=== PATIENT | male | born 1975 | race Two or more races ===

== ENCOUNTER 2023-02-06 14:56 | Outpatient (AMB) | payer OTHER, MEDICAID, SELFPAY ==
[2023-02-06 15:06] VITALS: BP 124/80; PULSE 97; O2SAT 97; BMI 32.8
--- NOTE | 2023-02-06 15:06 | A.OFFPC_ITS ---
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 PMHx: Pre-diabetes, hypertension. Pt states had changed to a vegetarian diet. SurgHx: Vasectomy FHx: Mom: HTN. Uncle: Colon CA age 44. GM: Brain tumor. SocHx: Quit cigs 2008. 1 ppd x 7. EtOH rarely 1-2 drinks per year. No Drugs. PFSH Medical History (Updated 02/06/23 @ 16:04 by Taz Antoine) Hypertension Pre-diabetes Depression Anxiety Surgical History (Updated 02/06/23 @ 15:18 by Jacey Pacheco CMA) H/O vasectomy Family History (Updated 02/06/23 @ 15:19 by Jacey Pacheco CMA) Mother High blood pressure Paternal Grandfather Diabetes Social History (Updated 02/06/23 @ 15:17 by Jacey Pacheco CMA) Household Members: Family Both parents involved: No Caregiver staying overnight: No Housing: House Are you a primary care administrative tech to a significant other at home: No Do you presently have visiting nurse or other home services: No 75 years or older and lives alone: No Alcohol intake: current Comment: on occasion Patient Tobacco Use Status: Former Tobacco user e-Cigarette/Vaping Use: Never Used Use of substances other than those prescribed or required for medical reasons: No Have you been hit, kicked, punched, or otherwise hurt by someone within the past year? If so, by whom?: No Do you feel safe in your current relationship?: Yes Is there a partner from a previous relationship who is making you feel unsafe now?: No Are you made to feel afraid or neglected: No Special amanda needs: No Are you DNR?: No Advance Directives: No Advance Directives Information Provided: No Healthcare Proxy: No service: Yes Current occupational status: employed Cognitive needs: No Hearing needs: No Vision needs: No Questionnaire PHQ-9 Over the last 2 weeks, how often have you been bothered by any of the following problems? 1. Little interest or pleasure in doing things: more than half the days 2. Feeling down, depressed, or hopeless: several days 3. Trouble falling or staying asleep, or sleeping too much: several days 4. Feeling tired or having little energy: several days 5. Poor appetite or overeating: not at all 6. Feeling bad about yourself - or that you are a failure or have let yourself or your family down: several days 7. Trouble concentrating on things, such as reading the newspaper or watching television: not at all 8. Moving or speaking so slowly that other people could have noticed. Or the opposite - being so fidgety or restless that you have been moving around a lot more than usual: not at all 9. Thoughts that you would be better off or of hurting yourself in some way: not at all Total score: 6 Source: Developed by Drs. Gerry Saxena, Nika Leonard, Agusto Goodson and colleagues, with an educational robb from [employer]. Thrive Questionnaire Date Thrive assessed: 02/06/23 I am a: Patient What is your living situation today?: I have a steady place to live Within the past 12 months, did the food you bought not last and you didn't have the money to get more?: Never true Within the past 12 months, did you worry whether your food would run out before you got money to buy more?: Never true Do you have trouble paying for medicines?: No Do you have trouble getting transportation to medical appointments?: No Do you have trouble paying your heating and electricity bill?: No Do you have trouble taking care of your child, family member or friend?: No Do you have trouble with day-to-day activities such as bathing, preparing meals, shopping, managing finances, etc.?: No Are you currently unemployed and looking for a job?: No Are you interested in more education?: No AUDIT C Alcohol Use Questionnaire (AUDIT-C) 1. How often do you have a drink containing alcohol?: Monthly or less 2. How many drinks containing alcohol do you have on a typical day when you are drinking?: 1 or 2 3. How often do you have six or more drinks on one occasion?: Never Total Score: 1 TURNER-7 AMB Questionnaire TURNER-7 Date TURNER - 7 assessed: 02/06/23 Feeling nervous, anxious, or on edge: 2 = More than half the days Not being able to stop or control worryin = Several days Worrying too much about different things: 1 = Several days Trouble relaxin = More than half the days Being so restless that it is hard to sit still: 1 = Several days Becoming easily annoyed or irritable: 2 = More than half the days Feeling afraid as if something awful might happen: 1 = Several days Total TURNER-7 score (0-4 normal; 5-9 mild; 10-14 moderate; 15-21 severe): 10 Source: Developed by Drs. Gerry Saxena, Nika Leonard, Agusto Goodson and colleagues, with an educational robb from [employer]. Review of Systems Const Denies chills, Denies fatigue, Denies fever(s), Denies headache(s) and Denies weakness ENT Denies dizziness and Denies headache(s) Card Denies chest pain, Denies lightheadedness, Denies dyspnea and Denies other (Palpitations) Resp Denies cough, Denies dyspnea, Denies wheezing and Denies other ( shortness of breath) Musc Denies numbness and Denies tingling Neuro Denies dizziness, Denies headache(s), Denies numbness, Denies tingling, Denies paresthesias and Denies weakness Psych Denies anxiety and Denies depression Endo Denies fatigue Aller/Immun Denies wheezing Physical exam (Primary Care) Vital Signs: Last Vital Signs Pulse 97 02/06/23 15:06 BP 124/80 02/06/23 15:06 Pulse Ox 97 02/06/23 15:06 Oxygen Delivery Method Room Air 02/06/23 15:06 BMI result Body Mass Index 32.8 Tobacco/Smoking Status: Tobacco use Status Tobacco use date assessed 02/06/23 02/06/23 15:21 Patient Tobacco Use Status Former Tobacco user 02/06/23 15:21 e-Cigarette/Vaping Use Never Used 02/06/23 15:21 PHQ-9: PHQ-9 Score PHQ-9: Total score 6 02/06/23 15:55 Thrive Assessment: Date of Thrive Assessment Date Thrive assessed 02/06/23 02/06/23 15:21 Const General: no acute distress and well developed Nutritional Appearance: well nourished Orientation/consciousness: patient oriented x3 HENMT Head: Yes normocephalic and Yes atraumatic Eyes General: appearance normal, both eyes and all related structures Pupils: Equal, round and reactive pupils present EOM: EOMs intact bilaterally Resp Effort & Inspection: normal respiratory effort Auscultation: clear to auscultation bilaterally Cardio Rate: regular rate Rhythm: regular rhythm Heart sounds: S1 normal heart sound present, S2 normal heart sound present, no gallops, no murmurs and no rubs Neuro General: patient oriented x3 and gait normal Cranial nerves: Yes Equal, round and reactive pupils present Psych Affect: normal affect Assessment and Plan Assessment & Plan (1) Gout: Code(s): M10.9 - Gout, unspecified Plan: Recent?gout. Check?uric?acid Continue?avoiding?trigger?foods (2) Laboratory exam ordered as part of routine general medical examination: Code(s): Z00.00 - Encounter for general adult medical examination without abnormal findings Plan: Check?lab Orders: Orders Comprehensive [place]. Panel Fast Today Z00.00 - Encounter for general adult medical examination without abnormal findings Lipid Panel Today Z00.00 - Encounter for general adult medical examination without abnormal findings Prostate Specific Antigen Scr Today Z12.5 - Encounter for screening for malignant neoplasm of prostate Microalbumin, Random (w Creat) Today I10 - Essential (primary) hypertension UA and rflx microscopic Today Z00.00 - Encounter for general adult medical examination without abnormal findings TSH reflex Free T4 Today Z00.00 - Encounter for general adult medical examination without abnormal findings Uric Acid Today M10.9 - Gout, unspecified Complete Blood Count Auto Diff Today Z00.00 - Encounter for general adult medical examination without abnormal findings Coding Level of Care Code New Pt Level 3 (37940) Diagnoses Gout M10.9 Laboratory exam ordered as part of routine general medical examination Z00.00
== END 2023-02-06 16:13 | disposition home or self-care (01) ==
PROVIDERS: PCP Family Medicine; Visit Provider Family Medicine
DX: M10.9 Gout, unspecified (principal); Z00.00 Encounter for general adult medical examination without abnormal findings
CPT/HCPCS: 99203

== ENCOUNTER 2023-04-16 06:02 | Outpatient (REF) | payer OTHER, MEDICAID, SELFPAY ==
[2023-04-16 06:23] LABS: MANUAL DIFF FLAG NO
[2023-04-16 07:47] LABS: Appearance Urine Clear; Color Urine Yellow; Glucose Urine UA Negative (Negative); Leukocyte Esterase Urine Negative (Negative); Nitrite Urine Negative (Negative); Urine Blood Negative (Negative); Urine Ketones Negative (Negative); Urine Protein Negative (Neg-Trace)
[2023-04-16 07:49] LABS: Basophils Absolute Auto 0.1 X10*3/uL (0.0-0.2); Basophils Percent Auto 0.8 % (0-2); Eosinophils Absolute Auto 0.1 X10*3/uL (0.0-0.4); Eosinophils Percent Auto 1.7 % (0-4); Hematocrit 50.8 % (42.0-52.0); Hemoglobin 16.9 g/dl (14.0-18.0); Imm Gran Abs Auto 0.03 X10*3/uL (0.00-0.03); Imm Gran Pct Auto 0.5 % (0.0-0.4); Lymphocytes Absolute Auto 1.9 X10*3/uL (1.2-4.9); Lymphocytes Percent Auto 29.6 % (20-40); Mean Corpuscular HGB Conc 33.3 g/dl (31.0-36.0); Mean Corpuscular Hemoglobin 28.4 pg (27.0-33.0); Mean Corpuscular Volume 85.4 fL (80.0-98.0); Mean Platelet Volume 10.2 fL (9.4-12.4); Monocytes Absolute Auto 0.5 X10*3/uL (0.1-1.2); Monocytes Percent Auto 7.6 % (2-11); Neutrophils Absolute Auto 3.9 x10*3/uL (2.0-8.3); Neutrophils Percent Auto 59.8 % (45-73); Platelet Count 214 X10*3/uL (160-400); Red Blood Count 5.95 X10*6/uL (4.60-5.80); Red Cell Distribution Width 14.1 % (11.0-16.0); White Blood Count 6.5 X10*3/uL (4.8-10.8)
[2023-04-16 08:25] LABS: Creatinine Urine 148.01 mg/dL; Microalbum/Creatinine Ratio Ur 3.3 ug/mg cr (<30)
[2023-04-16 08:32] LABS: Alanine Aminotransferase 116 U/L (0-40); Albumin Level 4.2 g/dL (3.5-5.0); Alkaline Phosphatase 86 U/L (39-117); Anion Gap 10 (12-20); Aspartate Amino Transferase 53 U/L (5-37); Bilirubin Total 0.6 mg/dL (0.0-1.0); Blood Urea Nitrogen 12 mg/dL (9-16); Carbon Dioxide 26 mmol/L (22-29); Chloride 105 mmol/L (96-108); Cholesterol 237 mg/dL (<200); Estimated Glomerular Filt Rate > 60; Glucose Fasting 92 mg/dL (60-99); HDL Cholesterol 55 mg/dL (>40); LDL Cholesterol Calculated 140 mg/dL (<100); Potassium 4.2 mmol/L (3.3-5.1); Sodium 137 mmol/L (135-145); Total Protein 7.5 g/dL (6.5-8.0); Triglycerides 211 mg/dL (<150)
[2023-04-16 08:53] LABS: Prostate Specific Antigen Scr 0.61 ng/mL (<0.05-4.0); TSH reflex Free T4 4.14 uIU/mL (0.32-4.0)
[2023-04-16 10:25] LABS: Free T4 (Free Thyroxine) 0.89 ng/dL (0.71-1.85)
== END 2023-04-16 06:03 | disposition home or self-care (01) ==
LOC: HO.LAB 06:02
PROVIDERS: PCP Family Medicine; Visit Provider Family Medicine
DX: Z00.00 Encounter for general adult medical examination without abnormal findings (principal); Z12.5 Encounter for screening for malignant neoplasm of prostate; I10 Essential (primary) hypertension; M10.9 Gout, unspecified
CPT/HCPCS: 36415; 80053; 80061; 81003; 82043; 82570; 84153; 84439; 84443; 84550; 85025

== ENCOUNTER 2023-05-08 13:58 | Outpatient (AMB) | payer OTHER, SELFPAY ==
[2023-05-08 14:07] VITALS: BP 138/78; PULSE 91; O2SAT 96; BMI 34.9
--- NOTE | 2023-05-08 14:07 | A.OFFPC_ITS ---
Vital Signs 05/08/23 14:07 Height 5 ft 9 in Weight 236 lb 6 oz BMI 34.9 BP 138/78 Blood Pressure Location Rt brachial Pulse 91 Pulse Source Pulse Oximeter Pulse Oximetry (%) 96 Oxygen Delivery Method Room Air Intake Visit Reasons: CPE with f/u labs and health maintenance Intake Note: Patient is here for his physical today. Allergies No Known Allergies Allergy (Verified 05/08/23 14:08) Tobacco use date assessed: 05/08/23 Dental Screening Dental Screen Date: 05/08/23 Did you have a dental visit in the last 12 months?: Yes Did you have a dental problem in the last 6 months where you did not have access to dental care?: No Was dental information given to patient?: Patient has dentist HPI CPE with f/u labs and health maintenance HPI Details 47 y/o male presents for a CPE with f/u labs and health maint. Labs were drawn 04/16/23. Reviewed labs with pt. Uric acid levels were fine. Hx of gout. Elevated RBC at 5.95. Elevated liver enzymes - AST 53 / ALT 116 U/L. Pt denies any tylenol use/excessive EtOH though he does note he has been drinking some EtOH along with some weight gain. Triglycerides 211. TC 237. LDL 140. HDL 55. TSH mildly elevated at 4.14. He reports he goes to the gym for exercise. He reports urinary frequency and gets up multiple times a night. He denies any dysuria. He reports normal volume. He denies difficulty emptying. HPI Comments History of Present Illness Details Documentation assistance for Cedric Melton MD, was provided by Taz Antoine, [employer] on 05/08/2023 2:26 PM EST. I, Dr. Melton, have read, observed, and verified documentation. PFSH Medical History Hypertension Pre-diabetes Depression Anxiety Surgical History H/O vasectomy Family History Mother High blood pressure Paternal Grandfather Diabetes Social History Household Members: Family Both parents involved: No Caregiver staying overnight: No Housing: House Are you a primary point of care specialist to a significant other at home: No Do you presently have visiting nurse or other home services: No 75 years or older and lives alone: No Alcohol intake: current Comment: on occasion Patient Tobacco Use Status: Former Tobacco user e-Cigarette/Vaping Use: Never Used Special amanda needs: No service: Yes Current occupational status: employed Cognitive needs: No Hearing needs: No Vision needs: No Questionnaire PHQ-9 Over the last 2 weeks, how often have you been bothered by any of the following problems? 1. Little interest or pleasure in doing things: several days 2. Feeling down, depressed, or hopeless: not at all 3. Trouble falling or staying asleep, or sleeping too much: nearly every day 4. Feeling tired or having little energy: not at all 5. Poor appetite or overeating: not at all 6. Feeling bad about yourself - or that you are a failure or have let yourself or your family down: not at all 7. Trouble concentrating on things, such as reading the newspaper or watching television: not at all 8. Moving or speaking so slowly that other people could have noticed. Or the opposite - being so fidgety or restless that you have been moving around a lot more than usual: several days 9. Thoughts that you would be better off or of hurting yourself in some way: not at all Total score: 5 Depression Screening Interpretation: Negative Depression Screening Done: Yes 56578 - PHQ-9 Billing: Yes Source: Developed by Drs. Gerry Saxena, Nika Leonard, Agusto Goodson and colleagues, with an educational robb from [employer]. Thrive Questionnaire Date Thrive assessed: 05/08/23 I am a: Patient What is your living situation today?: I have a steady place to live Within the past 12 months, did the food you bought not last and you didn't have the money to get more?: Never true Within the past 12 months, did you worry whether your food would run out before you got money to buy more?: Never true Do you have trouble paying for medicines?: No Do you have trouble getting transportation to medical appointments?: No Do you have trouble paying your heating and electricity bill?: No Do you have trouble taking care of your child, family member or friend?: No Do you have trouble with day-to-day activities such as bathing, preparing meals, shopping, managing finances, etc.?: No Are you currently unemployed and looking for a job?: No Are you interested in more education?: No THRIVE Score: 0 AUDIT C Alcohol Use Questionnaire (AUDIT-C) 1. How often do you have a drink containing alcohol?: Monthly or less 2. How many drinks containing alcohol do you have on a typical day when you are drinking?: 1 or 2 3. How often do you have six or more drinks on one occasion?: Never Total Score: 1 TURNER-7 AMB Questionnaire TURNER-7 Date TURNER - 7 assessed: 05/08/23 Feeling nervous, anxious, or on edge: 0 = Not at all Not being able to stop or control worryin = Not at all Worrying too much about different things: 1 = Several days Trouble relaxin = Nearly every day Being so restless that it is hard to sit still: 1 = Several days Becoming easily annoyed or irritable: 2 = More than half the days Feeling afraid as if something awful might happen: 0 = Not at all Total TURNER-7 score (0-4 normal; 5-9 mild; 10-14 moderate; 15-21 severe): 7 Source: Developed by Drs. Gerry Saxena, Nika Leonard, Agusto Goodson and colleagues, with an educational robb from [employer]. TURNER-7 Assessment Billing TURNER-7 Assessment Tool: TURNER-7 Assessment [id number] Review of Systems Const Denies chills, Denies fatigue, Denies fever(s), Denies headache(s) and Denies weakness Eyes Denies change in vision ENT Denies dizziness, Denies headache(s), Denies hearing loss, Denies nasal congestion, Denies sinus pain, Denies sinus pressure and Denies sore throat Card Denies chest pain, Denies lightheadedness, Denies dyspnea and Denies other (palpitations) Resp Denies cough, Denies dyspnea and Denies wheezing GI Denies abdominal pain, Denies melena, Denies hematochezia, Denies change in bowel habits, Denies dyspepsia and Denies nausea Denies hematuria and Denies dysuria Musc Denies abnormal gait, Denies myalgias, Denies arthralgias, Denies numbness and Denies tingling Skin/Breast Denies rash, Denies unusual bruising and Denies wounds Neuro Denies abnormal gait, Denies dizziness, Denies headache(s), Denies memory loss, Denies numbness, Denies Sensory deficit (Neuro), Denies tingling and Denies weakness Psych Denies anxiety, Denies depression and Denies memory loss Endo Denies cold intolerance, Denies fatigue, Denies heat intolerance, Denies polydipsia and Denies polyuria Jaret/Lymph Denies easy bleeding and Denies easy bruising Aller/Immun Denies wheezing Physical exam (Primary Care) Vital Signs: Last Vital Signs Pulse 91 05/08/23 14:07 BP 138/78 05/08/23 14:07 Pulse Ox 96 05/08/23 14:07 Oxygen Delivery Method Room Air 05/08/23 14:07 BMI result Body Mass Index 34.9 Tobacco/Smoking Status: Tobacco use Status Tobacco use date assessed 05/08/23 05/08/23 14:15 Patient Tobacco Use Status Former Tobacco user 05/08/23 14:15 e-Cigarette/Vaping Use Never Used 05/08/23 14:15 PHQ-9: PHQ-9 Score PHQ-9: Total score 5 05/08/23 14:21 Depression Screening Interpretation: Negative Thrive Assessment: Date of Thrive Assessment Date Thrive assessed 05/08/23 05/08/23 14:15 Const General: no acute distress, well developed, alert and awake Nutritional Appearance: well nourished Orientation/consciousness: patient oriented x3 HENMT Head: Yes normocephalic and Yes atraumatic Ears: hearing grossly normal bilaterally and TM's normal bilaterally General nose exam: Normal external nose present and Normal nares present Mouth: Normal oral and palatal mucosa present and moist mucous membranes Teeth and gingiva: dentition normal Throat: Yes posterior oropharynx normal Eyes General: appearance normal, both eyes and all related structures Pupils: Equal, round and reactive pupils present and Pupil accommodation reflex normal EOM: EOMs intact bilaterally Neck Neck: Yes normal visual inspection, Yes no lymphadenopathy and Yes trachea midl ine Thyroid: Thyroid normal Carotids: no bruits Lymphatic: no lymphadenopathy noted Chest Chest palpation & inspection: normal inspection of the chest Resp Effort & Inspection: normal respiratory effort Auscultation: clear to auscultation bilaterally Cardio Rate: regular rate Rhythm: regular rhythm Heart sounds: S1 normal heart sound present, S2 normal heart sound present, no gallops, no murmurs and no rubs Bruits: no abdominal aortic bruits and no carotid bruits GI Palpation (GI): No Abdominal aortic bruit present, Soft to palpation, nontender, No hepatosplenomegaly present and No Rebound tenderness present Auscultation: normal bowel sounds General: Yes no CVA tenderness Back/Spine/Pelvis Back: no CVA tenderness Cervical Spine: cervical ROM normal and No Cervical spine tenderness Thoracic/Lumbar Spine: thoraco-lumbar ROM normal, No pain with thoraco-lumbar ROM, No thoracic spinal tenderness and No lumbar spinal tenderness Skin Lesions: no lesions Rashes: no rashes Trauma: no lacerations or abrasions Wounds: no wounds Nails: normal Neuro General: patient oriented x3 Cranial nerves: Yes Equal, round and reactive pupils present Cognition (Neuro): normal cognition Gait exam (Neuro): Normal gait present Motor exam (neuro): 5/5 motor strength present throughout Sensory Exam: No Sensory deficit (Neuro) Deep tendon reflexes (DTR's): Right patellar reflex intensity grade: 2+ and Left patellar reflex intensity grade: 2+ Extrem General: Yes normal to inspection and No edema Psych Appearance: grossly normal Affect: normal affect Attitude: cooperative Thought process: Normal thought process present Assessment and Plan Assessment & Plan (1) Adult general medical exam: Code(s): Z00.00 - Encounter for general adult medical examination without abnormal findings Plan: 47-year-old?male?presents?for?complete?physical?exam Encouraged?healthy?diet?with?active?lifestyle?and?plenty?of?exercise (2) Elevated liver enzymes: Code(s): R74.8 - Abnormal levels of other serum enzymes Plan: Liver?enzymes?are?elevated. Encouraged?weight?loss,?hydration?and?avoidance?of?alcohol?and?Tylenol. Will?recheck?liver?enzymes?prior?to?his?next?visit If?liver?enzymes?are?the?same?or?higher,?will?get?an?ultrasound (3) Hypercholesterolemia: Code(s): E78.00 - Pure hypercholesterolemia, unspecified Plan: Lipids?are?elevated. Encouraged?weight?loss Encouraged?exercise (4) Urinary frequency: Code(s): R35.0 - Frequency of micturition Plan: PSA?within?normal?limits. No?dysuria,?urgency?or?pressure. We?discussed?referral?to?urology?but?patient?declines?for?now. Encouraged?scheduled?voids?before?going?to?bed. Avoid?salty?foods He?will?let?me?know?if?problem?is?persisting (5) Elevated TSH: Code(s): R79.89 - Other specified abnormal findings of blood chemistry Plan: Recheck?thyroid?levels (6) Screening for colon cancer: Code(s): Z12.11 - Encounter for screening for malignant neoplasm of colon Plan: Referred?to?Gastroenterology (7) Screening for prostate cancer: Code(s): Z12.5 - Encounter for screening for malignant neoplasm of prostate Plan: PSA?was?within?normal?limits Orders: Orders Free T4 (Free Thyroxine) Today E03.9 - Hypothyroidism, unspecified Triiodothyronine T3 Total Today E03.9 - Hypothyroidism, unspecified Comprehensive [place]. Panel Fast Today R74.8 - Abnormal levels of other serum enzymes, Z00.00 - Encounter for general adult medical examination without abnormal findings Lipid Panel Today E78.00 - Pure hypercholesterolemia, unspecified, Z00.00 - Encounter for general adult medical examination without abnormal findings Thyroid Stimulating Hormone Today E03.9 - Hypothyroidism, unspecified Referrals Gastroenterology Referral Z12.11 - Encounter for screening for malignant neoplasm of colon Coding Level of Care Code Est Pt Level 3 (82633) Est Pt Prev Care 40-64y(22009) Diagnoses Adult general medical exam Z00.00 Elevated liver enzymes R74.8 Hypercholesterolemia E78.00 Urinary frequency R35.0 Elevated TSH R79.89 Screening for colon cancer Z12.11 Screening for prostate cancer Z12.5 Additional Codes TURNER-7 Assessment Billing - TURNER-7 Assessment Tool: TURNER-7 Assessment [id number] ([id number])
== END 2023-05-08 14:40 | disposition home or self-care (01) ==
PROVIDERS: PCP Family Medicine; Visit Provider Family Medicine
DX: Z00.00 Encounter for general adult medical examination without abnormal findings (principal); R74.8 Abnormal levels of other serum enzymes; E78.00 Pure hypercholesterolemia, unspecified; R35.0 Frequency of micturition; R79.89 Other specified abnormal findings of blood chemistry; Z12.11 Encounter for screening for malignant neoplasm of colon; Z12.5 Encounter for screening for malignant neoplasm of prostate
CPT/HCPCS: 99213; 99396

== ENCOUNTER 2024-10-01 09:40 | Outpatient (AMB) | payer OTHER, SELFPAY ==
--- OUTSIDE RECORDS SUMMARY | 2024-10-01 10:02 | XMS_ITS | Clinical Summary ---
Author Organization [facility] Address [address] [place] [address] Care Team Providers Care Master [place] Name Role Phone Lupe Colon DO Primary Care Provider [phone] Surgical History Surgery Date Site/Laterality Comments WISDOM TOOTH EXTRACTION PROCEDURE: HISTORICAL WISDOM TEETH EXTRACTION Medical History Medical History Date Comments Fractured hand 2002 DX:Fractured lucas d; COMMENT: right Hyperlipidemia 08/05/2010 DX:Hyperlipidemi a Depression DX:Depression; C OMMENT: treated in ; off meds since 2005 Family History Medical History Relation Name Comments Other: kidney stones Brother 1 oldest Other: no medical problems Brother 2 Arthritis Father Arthritis Mother DM Thyroid disease Sister 1 oldest, hypo thyroid Other: no medical problems Sister 2 Relation Name Status Comments Brother 1 Brother 2 Brother 3 Alive X2 Father Alive Mother Alive Sister 1 Sister 2 Sister 3 Alive X2 Social History Tobacco Use Types Packs/Day Years Used Date Smoking Tobacco: Former Cigarettes Q uit: 04/22/2010 Smokeless Tobacco: Never Alcohol Use Standard Drinks/Week Comments Yes 0 (1 standard drink = 0.6 oz pur e alcohol) Sex and Gender Information Value Date Recorded Sex Assigned at Not on file Legal Sex Male 3:33 PM EST Gender Identity Not on file Sexual Orientation Not on file Obstetrics History Plan of Treatment Health Maintenance Due Date Last Done Comments Hepatitis B Vaccines (1 of 3 - 19+ 3-dose series) 1993 DTaP,Tdap,and Td Vaccines (2 - Td or Tdap) 05/28/2023 05/27/2013 COVID-19 Vaccine ( - 2023-2 5 season) 2023 Depression Screening 02/27/2024 Influenza Vaccine (#1) 2024 HIB Vaccines Aged Out No longer eligi ble based on patient's age to complete this topic HPV Vaccines Aged Out No longer eligi ble based on patient's age to complete this topic Hepatitis A Vaccines Aged Out No long er eligible based on patient's age to complete this topic IPV Vaccines Aged Out No longer eligi ble based on patient's age to complete this topic MMR Vaccines Aged Out No longer eligi ble based on patient's age to complete this topic Meningococcal ACWY Vaccine Aged Out N o longer eligible based on patient's age to complete this topic Meningococcal B Vaccine Aged Out No l onger eligible based on patient's age to complete this topic Pneumococcal Vaccine: Pediat rics (0 to 5 Years) and At-Risk Patients (6 to 49 Years) Aged Out No longer eligi ble based on patient's age to complete this topic RSV Immunization Patients Un aleshia 20 months Aged Out No longer eligible b ased on patient's age to complete this topic Varicella Vaccines Aged Out No longer eligible based on patient's age to complete this topic Care Teams Master [place] Relationship Specialty Start Date End Date Lupe Colon DO PCP - General Internal Medicine 04/08/21
--- NOTE | 2024-10-01 10:09 | MHC.PC.OV ---
Vital Signs 10/01/24 10:10 Height 5 ft 9 in Weight 241 lb 6 oz BMI 35.6 BP 128/90 H Blood Pressure Location Rt brachial Position Sitting Respiration 16 Pulse 88 Pulse Source Pulse Oximeter Temp 98.1 F Temp Source Oral Pulse Oximetry (%) 96 Oxygen Delivery Method Room Air Intake Visit Reasons: weight loss meds Intake Note: patient is scheduled to discuss weight loss medication [employer] Required: No Allergies No Known Allergies Allergy (Verified 10/01/24 10:09) Medication List - Last Reconciled 10/01/24 by Cedric Melton MD No Known Home Meds Tobacco use date assessed: 05/08/23 Dental Screening Dental Screen Date: 05/08/23 HPI weight loss meds HPI Details 48 y/o male presents today to discuss weight loss meds. No recent labs to review. Pt reports difficulty losing weight. He would like to trial weight loss med. BP today mildly elevated at 128/90, 88p. PFSH Medical History Hypertension Pre-diabetes Depression Anxiety Surgical History H/O vasectomy Family History Mother High blood pressure Paternal Grandfather Diabetes Social History Household Members: Family Both parents involved: No Caregiver staying overnight: No Housing: House Are you a primary field care advocate to a significant other at home: No Do you presently have visiting nurse or other home services: No 75 years or older and lives alone: No Alcohol intake: current Comment: on occasion Patient Tobacco Use Status: Former Tobacco user e-Cigarette/Vaping Use: Never Used Special amanda needs: No service: Yes Current occupational status: employed Cognitive needs: No Hearing needs: No Vision needs: No Questionnaire PHQ-9 Over the last 2 weeks, how often have you been bothered by any of the following problems? 1. Little interest or pleasure in doing things: not at all 2. Feeling down, depressed, or hopeless: not at all 3. Trouble falling or staying asleep, or sleeping too much: several days 4. Feeling tired or having little energy: not at all 5. Poor appetite or overeating: several days 6. Feeling bad about yourself - or that you are a failure or have let yourself or your family down: not at all 7. Trouble concentrating on things, such as reading the newspaper or watching television: not at all 8. Moving or speaking so slowly that other people could have noticed. Or the opposite - being so fidgety or restless that you have been moving around a lot more than usual: not at all 9. Thoughts that you would be better off or of hurting yourself in some way: not at all Total score: 2 Source: Developed by Drs. Gerry Saxena, Nika Leonard, Agusto Goodson and colleagues, with an educational robb from [employer]. Thrive Questionnaire Date Thrive assessed: 05/08/23 I am a: Patient What is your living situation today?: I have a steady place to live Within the past 12 months, did the food you bought not last and you didn't have the money to get more?: Never true Within the past 12 months, did you worry whether your food would run out before you got money to buy more?: Never true Do you have trouble paying for medicines?: No Do you have trouble getting transportation to medical appointments?: No Do you have trouble paying your heating and electricity bill?: No Do you have trouble taking care of your child, family member or friend?: No Do you have trouble with day-to-day activities such as bathing, preparing meals, shopping, managing finances, etc.?: No Are you currently unemployed and looking for a job?: No Are you interested in more education?: No Please select the resources that you would like help with: None Currently or been in a relationship where the following occur: No concerns reported THRIVE Score: 0 AUDIT C Alcohol Use Questionnaire (AUDIT-C) 1. How often do you have a drink containing alcohol?: Never Total Score: 0 TURNER-7 AMB Questionnaire TURNER-7 Date TURNER - 7 assessed: 05/08/23 Feeling nervous, anxious, or on edge: 1 = Several days Not being able to stop or control worryin = Not at all Worrying too much about different things: 0 = Not at all Trouble relaxin = Not at all Being so restless that it is hard to sit still: 0 = Not at all Becoming easily annoyed or irritable: 0 = Not at all Feeling afraid as if something awful might happen: 0 = Not at all Total TURNER-7 score (0-4 normal; 5-9 mild; 10-14 moderate; 15-21 severe): 1 Source: Developed by Drs. Gerry Saxena, Nika Leonard, Agusto Goodson and colleagues, with an educational robb from [employer]. Review of Systems Const Denies chills, Denies fatigue, Denies fever(s), Denies headache(s) and Denies weakness ENT Denies dizziness and Denies headache(s) Card Denies dyspnea Resp Denies cough, Denies dyspnea, Denies wheezing and Denies other (shortness of breath) Musc Denies numbness and Denies tingling Neuro Denies dizziness, Denies headache(s), Denies numbness, Denies tingling and Denies weakness Psych Denies anxiety and Denies depression Endo Denies fatigue Aller/Immun Denies wheezing Physical exam (Primary Care) Vital Signs: Last Vital Signs Temp 98.1 F 10/01/24 10:10 Pulse 88 10/01/24 10:10 Resp 16 10/01/24 10:10 BP 128/90 H 10/01/24 10:10 Pulse Ox 96 10/01/24 10:10 Oxygen Delivery Method Room Air 10/01/24 10:10 BMI result Body Mass Index 35.6 Tobacco/Smoking Status: Tobacco use Status Tobacco use date assessed 05/08/23 10/01/24 10:12 Patient Tobacco Use Status Former Tobacco user 10/01/24 10:12 e-Cigarette/Vaping Use Never Used 10/01/24 10:12 PHQ-9: PHQ-9 Score PHQ-9: Total score 2 10/01/24 10:28 Thrive Assessment: Date of Thrive Assessment Date Thrive assessed 05/08/23 10/01/24 10:12 Currently or been in a relationship where the following occur: No concerns reported Const General: well developed; No acute distress Nutritional Appearance: well nourished and obese Orientation/consciousness: patient oriented x3 HENMT Head: Yes normocephalic and Yes atraumatic Eyes General: appearance normal, both eyes and all related structures Pupils: Equal, round and reactive pupils present EOM: EOMs intact bilaterally Resp Effort & Inspection: normal respiratory effort Auscultation: clear to auscultation bilaterally Cardio Rate: regular rate Rhythm: regular rhythm Heart sounds: S1 normal heart sound present, S2 normal heart sound present, no gallops, no murmurs and no rubs Neuro General: patient oriented x3 and gait normal Cranial nerves: Yes Equal, round and reactive pupils present Psych Affect: normal affect Coding Level of Care Code Est Pt Level 4 (50157) Diagnoses Obesity E66.9 Elevated blood pressure reading R03.0 Elevated liver enzymes R74.8 Assessment & Plan Assessment & Plan (1) Obesity: Code(s): E66.9 - Obesity, unspecified Category: Medical Plan: Patient has had difficulty with weight loss. Has tried numerous diets and exercise. He would like to try Mounjaro Will send script. We discussed risk/benefits and expectations We discussed that whether major barriers is the cost and insurance coverage. He will check with his insurance if there is any problem. Checking labs (2) Elevated blood pressure reading: Code(s): R03.0 - Elevated blood-pressure reading, without diagnosis of hypertension Category: Medical Plan: Blood pressure is elevated. No prior diagnosis of hypertension. Will continue to follow this If he is able to exercise and lose some weight I suspect this improve. (3) Elevated liver enzymes: Code(s): R74.8 - Abnormal levels of other serum enzymes Category: Medical Plan: Obesity and history of elevated liver enzymes. Had recommended weight loss. Patient has not lost weight Will recheck these Plan He will return in 1-2 months to follow-up obesity Orders: Orders LDL Cholesterol Direct Today E78.5 - Hyperlipidemia, unspecified Lipid Panel Today Z00.00 - Encounter for general adult medical examination without abnormal findings TSH reflex Free T4 Today Z00.00 - Encounter for general adult medical examination without abnormal findings Comprehensive [place]. Panel Fast Today Z00.00 - Encounter for general adult medical examination without abnormal findings Microalbumin, Random (w Creat) Today I10 - Essential (primary) hypertension Prostate Specific Antigen Scr Today Z12.5 - Encounter for screening for malignant neoplasm of prostate UA CC w/rflx Micro + Cult Today Z00.00 - Encounter for general adult medical examination without abnormal findings
[2024-10-01 10:10] VITALS: BP 128/90; PULSE 88; RESP 16; TEMP 36.7; O2SAT 96; BMI 35.6
== END 2024-10-01 10:38 | disposition home or self-care (01) ==
LOC: HO.HMCFM 09:41
PROVIDERS: PCP Family Medicine; Visit Provider Family Medicine
DX: E66.9 Obesity, unspecified (principal); R03.0 Elevated blood-pressure reading, without diagnosis of hypertension; R74.8 Abnormal levels of other serum enzymes; Z68.35 Body mass index [BMI] 35.0-35.9, adult

== ENCOUNTER 2024-10-02 07:11 | Outpatient (REF) | payer OTHER, SELFPAY ==
--- OUTSIDE RECORDS SUMMARY | 2024-10-01 10:01 | XMS_ITS | Continuity of Care Document ---
Author Name [facility] Organization [facility] Care Team Providers Care Rn Cardiovascular Name Role Phone [facility] Unavailable Unavailable Problems Combined list of problems from Department of Defense and Veterans Affairs facilities. It does not include entries that were removed or entered in error. Problem Status Onset Date Problem Type Date of Resolution Comments Source Chronic post-traumatic stress disorder (SNOMED CT [id number]) Active Condition Feb 03, 2020 Entered By: IDALIA FAUST Comment: Updated. [place] Colonoscopy Screening Active Condition [facility] HEALTH EXAM-GROUP SURVEY Active Condition [facility] History of vasectomy Active Condition Feb 01, 2024 Entered By: RYANNE ESCAMILLA Comment: Approx 2003 [place] Low back pain Active Condition [facility] Mild recurrent major depression Active Condition Feb 02 0 Entered By: IDALIA FAUST Comment: Updated. [facility] NON-[facility] Providers Active Condition Jun 18, 2023 Entered By: CORI GARCIA Comment: PCP: Ashlyn Melton MD [place] Panic disorder without agoraphobia Active Condition Feb 03, 2020 Entered By: IDALIA FAUST Comment: Has panic attacks [place] REFRACTIVE ERROR Active Condition joe theresa ou; release spec rx:-2.75-0.50x18 0 OD 20/20-2.50 sphere OS 20/20 [facility] LUMBAGO Active Condition [facility] Other Physical Therapy Inactive Condition [facility] GASTRITIS DUE TO H. PYLORI Active Condition [facility] ACQUIRED DEFORMITY PRONATED FOOT Active Condition DoD visit for: follow-up exam Inactive Condition DoD visit for: ears / hearing exam Active Condition [facility] insomnia Active Condition DoD lower back pain Active Condition DoD ADJUSTMENT DISORDER WITH ANXIETY AND DEPRESSED MOOD Active Condition DoD ADJUSTMENT DISORDER WITH ANXIETY Active Condition DoD NONALLOPATHIC LESIONS SACRAL Active Condition DoD NONALLOPATHIC LESIONS LUMBAR Active Condition DoD NONALLOPATHIC LESIONS CERVICAL Active Condition DoD NONALLOPATHIC LESIONS THORACIC Active Condition DoD Patient Counseling Medical Management Two To Four Patients Active Condition DoD LOWER BACK SPRAIN Inactive Condition DoD Brace Active Condition DoD BACKACHE Inactive Condition DoD Vaccines Prophylactic Need Against Influenza Active Condition DoD CHRONIC POST-TRAUMATIC STRESS DISORDER Active Condition R/o PTSD vs Major Depressed w/ Anxiety DoD ASSESS PATIENT CONDITION WORK-RELATED OCCUPATIONAL DISEASE Inactive Condition Pt. showed positive sts in hearing compared to baseline Audiogram. Pt. to return on another day for follow up 1 Audiogram. DoD DEPRESSION Active Condition [facility] is still doing much better than when he first presented (SI, depression, overwhelming panic, and agaoraphobia symptoms are resolved), but he still has an Aspergers feel to him. I think that this is his well baseline and he seems pleased with his overall response to treatment. I again discussed with him that he likely needs to be on an antidepressant for much of his life given the severity of his anxiety and depression when he first presented. I discussed the risks associated with Effexor w/d again, and gave him the clinic contact information so his next provider can request his records. His medications were refilled with enough of a supply for him to establish care elsewhere. DoD NICOTINE DEPENDENCE Active Condition Pt. is aware of the adverse health effects associated with tobacco abuse and has been told to quit smoking. DoD MYALGIA AND MYOSITIS Active Condition DoD visit for: occupational health / fitness exam Inactive Condition DoD Patient Education - Injury Prevention Inactive Condition DoD Vaccines Prophylactic Need Against Single Disease Inactive Condition DoD visit for: general multisystem exam Inactive Condition DoD ASSESSMENT OF PATIENT CONDITION WORK STATUS Inactive Condition DoD GENERALIZED ANXIETY DISORDER Active Condition DoD Patient Counseling: Inactive Condition DoD visit for: administrative purpose Inactive Condition OUT PROCESSING DoD visit for: screening exam pulmonary tuberculosis Inactive Condition PPD interpretation 0mm DoD visit for: services physical Inactive Condition DoD ASTIGMATISM Active Condition DoD REFRACTIVE ERROR - MYOPIA Active Condition [facility] NORMAL ROUTINE OPHTHALMOLOGICAL EXAM Inactive Condition DoD visit for: sterilization Inactive Condition [facility] visit for: screening mental / developmental disorders Inactive Condition DoD NORMAL EXAMINATION Inactive Condition Do D Inquiry And Counseling: Contraceptive Practices Inactive Condition counseled pt fo r 30 mins on vasectomy. discussed reasons for vasectomy including permanence of procedure. pt explicitly desires sterilization by vasectomy after ful discussion of issues. pt read vasectomy packet and I reviewed each section in detail. Pt DoD Vaccines Prophylactic Need Against Bacterial Diseases Inactive Condition [facility] Diagnosis: ICD-10-CM F43.12 Post-traumatic stress disorder, chronic Active Diagnosis [facility] Allergies, Adverse Reactions, Alerts Combined list of allergies from Department of Defense and Veterans Affairs facilities. It does not include entries that were removed or entered in error. Substance Category Reaction Severity Reaction type Status Date Reported Comments Source OTHER Drug allergy (disorder) Unknown active 03/15/2006 [facility] [place] Immunizations Combined list of available immunizations from the Department of Defense and Veterans Affairs facilities. Immunization Series Date Given Administered By Site Reaction Lot Number CVX Code Drug Water Attendant Status Comments Source INFLUENZA, SEASONAL, INJECTABLE 2017 141 complet ed Site: Left Deltoid [place] INFLUENZA, SEASONAL, INJECTABLE 2016 141 complet ed Site: Left Deltoid [place] FLU,3 YRS (HISTORICAL) 2015 88 complet ed Site: Left Deltoid [place] DTAP, UNSPECIFIED FORMULATION 2013 107 complet ed [facility] FLU,3 YRS (HISTORICAL) 2012 88 complet ed [facility] influenza virus vaccine, live, attenuated, for intranasal use 1 2005 [id number] hi5. (MED) complet ed influenza virus vaccine, live, attenuate d, for intranasa l use DoD meningococcal polysaccharid e vaccine (MPSV4) 1 2005 KAROLYN LAINEZ [id number] Sanofi Pasteur ([facility]) complet ed meningoco ccal polysacch aride vaccine (MPSV4) DoD tuberculin skin test; purified protein derivative solution, intradermal 1 2005 Unknown, Provider [id number] Sanofi Pasteur ([facility]) complet ed tuberculi n skin test; purified protein derivativ e solution, intraderm al DoD tuberculin skin test; purified protein derivative solution, intradermal 1 2005 Unknown, Provider [id number] Sanofi Pasteur ([facility]) complet ed tuberculi n skin test; purified protein derivativ e solution, intraderm al DoD HEP B, ADULT 3 2004 43 complet ed [facility] hepatitis B vaccine, adult dosage 4 2004 Unknown, Provider [id number] [facility] ([facility]) complet ed hepatitis B vaccine, adult dosage DoD typhoid Vi capsular polysaccharid e vaccine 1 2004 Unknown, Provider [id number] Sanofi Pasteur ([facility]) complet ed typhoid Vi capsular polysacch aride vaccine DoD influenza virus vaccine, split virus (incl. purified surface antigen)-reti red CODE 1 2004 Unknown, Provider [id number] 15 Sanofi Pasteur ([facility]) complet ed influenza virus vaccine, split virus (incl. purified surface antigen)- retired CODE DoD tuberculin skin test; purified protein derivative solution, intradermal 1 2004 Unknown, Provider [id number] 96 Unknown (UNK) complet ed tuberculi n skin test; purified protein derivativ e solution, intraderm al DoD yellow fever vaccine 1 2004 Unknown, Provider [id number] Sanofi Pasteur ([facility]) complet ed yellow fever vaccine DoD typhoid Vi capsular polysaccharid e vaccine 1 2004 Unknown, Provider [id number] Sanofi Pasteur ([facility]) complet ed typhoid Vi capsular polysacch aride vaccine DoD influenza virus vaccine, split virus (incl. purified surface antigen)-reti red CODE 0 2004 Unknown, Provider [id number] 15 Sanofi Pasteur ([facility]) complet ed influenza virus vaccine, split virus (incl. purified surface antigen)- retired CODE DoD anthrax vaccine 6 2003 Unknown, Provider [id number] [facility] [place] ([facility]) complet ed anthrax vaccine DoD anthrax vaccine 5 2003 Unknown, Provider [id number] [facility]) complet ed anthrax vaccine DoD tuberculin skin test; purified protein derivative solution, intradermal 1 2002 Unknown, Provider [id number] Other (OT) complet ed tuberculi n skin test; purified protein derivativ e solution, intraderm al DoD influenza virus vaccine, split virus (incl. purified surface antigen)-reti red CODE 1 2002 Unknown, Provider [id number] [employer] (PW) complet ed influenza virus vaccine, split virus (incl. purified surface antigen)- retired CODE DoD anthrax vaccine 4 2002 Unknown, Provider [id number] [facility]) complet ed anthrax vaccine DoD tuberculin skin test; purified protein derivative solution, intradermal 0 2002 Unknown, Provider [id number] 96 Sanofi Pasteur ([facility]) complet ed tuberculi n skin test; purified protein derivativ e solution, intraderm al DoD vaccinia (smallpox) vaccine 0 2002 Unknown, Provider [id number] [place] ([facility]) complet ed vaccinia (smallpox ) vaccine DoD tuberculin skin test; purified protein derivative solution, intradermal 0 2002 Unknown, Provider [id number] Sanofi Pasteur ([facility]) complet ed tuberculi n skin test; purified protein derivativ e solution, intraderm al DoD HEP B, ADULT 2 2002 43 complet ed [facility] hepatitis B vaccine, adult dosage 3 2002 Unknown, Provider [id number] 43 [employer] ([facility]) complet ed hepatitis B vaccine, adult dosage DoD hepatitis A vaccine, adult dosage 2 2002 Unknown, Provider [id number] Merck (MSD) complet ed hepatitis A vaccine, adult dosage DoD anthrax vaccine 3 2002 Unknown, Provider [id number] [employer] [place] ([facility]) complet ed anthrax vaccine DoD anthrax vaccine 2 2001 Unknown, Provider [id number] [employer] [place] ([facility]) complet ed anthrax vaccine DoD anthrax vaccine 1 2001 Unknown, Provider [id number] [employer] [place] ([facility]) complet ed anthrax vaccine DoD influenza virus vaccine, split virus (incl. purified surface antigen)-reti red CODE 0 2001 Unknown, Provider [id number] 15 Renea (Inactive) ([place]) complet ed influenza virus vaccine, split virus (incl. purified surface antigen)- retired CODE DoD HEP B, ADULT 1 2001 43 complet ed [facility] hepatitis B vaccine, adult dosage 2 2001 Unknown, Provider [id number] 43 Unknown (UNK) complet ed hepatitis B vaccine, adult dosage DoD typhoid Vi capsular polysaccharid e vaccine 0 2001 Unknown, Provider UNK 101 Unknown (UNK) complet ed typhoid Vi capsular polysacch aride vaccine DoD tetanus and diphtheria toxoids, adsorbed, preservative free, for adult use (2 Lf of tetanus toxoid and 2 Lf of diphtheria toxoid) 0 2001 Unknown, Provider UNK 09 Unknown (UNK) complet ed tetanus and diphtheri a toxoids, adsorbed, preservat abraham free, for adult use (2 Lf of tetanus toxoid and 2 Lf of diphtheri a toxoid) DoD hepatitis B vaccine, adult dosage 1 2001 Unknown, Provider UNK 43 Unknown (UNK) complet ed hepatitis B vaccine, adult dosage DoD hepatitis A vaccine, adult dosage 1 2001 Unknown, Provider UNK 52 Unknown (UNK) complet ed hepatitis A vaccine, adult dosage DoD measles, mumps and rubella virus vaccine 0 2000 Unknown, Provider UNK 03 Unknown (UNK) complet ed measles, mumps and rubella virus vaccine DoD poliovirus vaccine, inactivated 0 2000 Unknown, Provider UNK 10 Unknown (UNK) complet ed polioviru s vaccine, inactivat ed DoD meningococcal polysaccharid e vaccine (MPSV4) 0 2000 Unknown, Provider UNK 32 Unknown (UNK) complet ed meningoco ccal polysacch aride vaccine (MPSV4) DoD Vital Signs Combined list of inpatient and outpatient Vital Signs from Department of Defense and Veterans Affairs, ranging from 12 months to all on record, depending upon the facility. Vital Sign Value Date Comments Source SYSTOLIC BLOOD PRESSURE 138 03/03/19 25 14:30:48 [facility] DIASTOLIC BLOOD PRESSURE 87 025 14:30:48 [facility] [facility] PULSE OXIMETRY 98 03/03/2024 14:30:48 [facility] WEIGHT 229.4 03/03/2024 14:30:48 [facility] BMI 35 kg/m2 03/03/2024 14:30:48 [facility] PAIN 0 03/03/2024 14[facility]30:48 [facility] HEIGHT 68 03/03/2024 14:30:48 [facility] TEMPERATURE 98.7 03/03/2024 14:30:48 [facility] PULSE 83 03/03/2024 14:30:48 [facility] RESPIRATION 16 03/03/2024 14:30:48 [facility] Encounters Combined list of: 1) Encounters from Department of Veterans Affairs facilities going backup to the last 18 months, not all VA inpatient encounters are included; 2) Encounters from the Department of Defense facilities going backup to 280 months. Location Location Details Encounter Type Encounter Number Reason For Visit Attending Provider ADM Date DC Date Status Disposition Source [facility]) OUTPATIENT [id number] PDP MIRELLA MONTERO 10/13 Released w/o Limitations [facility]) [facility] N Pre/Post Deploymen t) OUTPATIENT [id number] rpd MIRELLA MONTERO 11/25 Released w/o Limitations [facility] Pre/Pos t Deploym ent) [facility] OUT[facility] [id number] PATIENT WOULD LIKE TO DISCUSS VASECTO MY AND CIRCUMC KING RIOS 11/30 Released w/o Limitations [facility] Family Practic e) [facility](L Hearing Conservat ion) OUTPATIENT [id number] AUTUMN MARIE 12/08 Released w/o Limitations [facility] Hearing Conserv ation) [facility](ZZZKS N Pre/Post Deploymen t) OUTPATIENT [id number] P HOLLY HARDING 12/09 Released w/o Limitations [facility] Pre/Pos t Deploym ent) [facility] Primary Care) OUTPATIENT [id number] POST DEPLOY MONIQUE COONEY 04/24 Released w/o Limitations [facility] Primary Care) [facility] L Family Practice) OUTPATIENT [id number] discuss bisecto my PRICE JOSUE 05/31 Released w/o Limitations [facility] Family Practic e) [facility] Family Practice) OUTPATIENT [id number] vaascec KAROLYN Wynn 06/21 Released w/o Limitations [facility] Family Practic e) [facility]) OUTPATIENT [id number] f/u to a visecto JOSE E Reed 07/25 Released w/o Limitations [facility] Family Practic e) [facility] Optometry ) OUTPATIENT [id number] ANNUAL EYE EXAM DELETED_VE HAILE EDILBERTOJUDY ELLIOTT 08/10 Released w/o Limitations [facility] Optomet ry) [facility] Primary Care) OUTPATIENT [id number] 2900 HUGH ROMO 08/14 Released w/o Limitations [facility] Primary Care) [facility]) OUTPATIENT [id number] PPD LINDA Lenrer 08/22 Released w/o Limitations [facility]) [facility] Primary Care) OUTPATIENT [id number] LINDA Pulido 09/14 Released w/o Limitations [facility] Primary Care) [facility]) TELE CONSULT [id number] lab results THOMAS SANTOS 09/14 [facility] Family Practic e) [facility] OUTPATIENT [id number] DD 0745 INPRO, DA 7349, DD 2900 MARLA PERAZA 10/23 Released w/o Limitations [facility]ine [facility]) [facility] [place](Immuni zations) OUTPATIENT [id number] michelas HAL SHARPE 10/23 Released w/o Limitations [facility] [place](Immu nizatio ns) [facility] [place](Occ Health) OUTPATIENT [id number] Inproce ssing/n patti n care/MARINA NICOLE 10/23 Released w/o Limitations [facility] [place]Occ Health) [facility] [place](Certified Orthotic Fitter al Medicine) OUTPATIENT [id number] back pain FABIOLA HUMPHREY. 10/26 Released w/o Limitations [facility] [place]Inte rnal Medicin [place]) [facility] [place]([facility] Health) OUTPATIENT [id number] AD MARINA POP. 11/09 Released w/o Limitations [facility] [place]) [facility] [place]Family Practice Team 1) OUTPATIENT [id number] FLU IMMUNIZ ATION. RADHA COLBY 12/11 Released w/o Limitations [facility] [place]Fami [place] Practic e Team 1) [facility] [place]Family Practice [place] 1) OUTPATIENT [id number] TAIL BONE PAIN JASBIR CONTRERAS. 12/27 Released with Work/Duty Limitations [facility] [place]Fami [place] Practic [place] Team 1) [facility] [place]Cast) OUTPATIENT [id number] Orthope dic Device MINE DOWNEY 01/02 Released w/o Limitations [facility] [place]Cast ) [facility] [place]Chirop ractic) OUTPATIENT [id number] KATHARINE CLIFFORD 02/08 Released w/o Limitations [facility] [place]Chir opracti c) [facility] [place]) OUTPATIENT [id number] LOWER BACK SPRAIN KATHARINE CLIFFORD 02/12 Released w/o Limitations [facility] [place]Ch[place] opracti c) [facility] [place]) OUTPATIENT [id number] KATHARINE CLIFFORD 02/15 Released w/o Limitations [facility] [place]Chir opracti c) [facility] [place]) OUTPATIENT [id number] KATHARINE CLIFFORD 03/01 Released w/o Limitations [facility] [place]Ch[place]i [place]) [facility] [place] OUTPATIENT [id number] KATHARINE CLIFFORD 03/08 Released w/o Limitations [facility] [place]Ch[place]) [facility] [place] OUTPATIENT [id number] KATHARINE CLIFFORD 03/15 Released w/o Limitations [facility] [place]) [facility] [place] OUTPATIENT [id number] KATHARINE CLIFFORD 03/20 Released w/o Limitations [facility] [place]Ch[place]) [facility] [place] OUTPATIENT [id number] KATHARINE CLIFFORD 03/23 Released w/o Limitations [facility] [place]) [facility] [place] OUTPATIENT [id number] KATHARINE CLIFFORD 03/27 Released w/o Limitations [facility] [place]) [facility] [place] OUTPATIENT [id number] KATHARINE CLIFFORD 04/03 Released w/o Limitations [facility] [place]) [facility] [place] OUTPATIENT [id number] KATHARINE CLIFFORD 04/05 Released w/o Limitations [facility] [place]Ch[place]) [facility] [place]Optome [place] OUTPATIENT [id number] LANI JOE 04/09 Released w/o Limitations [facility] [place]Opto [place]ry) [facility] [place] OUTPATIENT [id number] DD 2795 IMR DEJA MORA 04/09 Released w/o Limitations [facility] [place] [place]) [facility] [place]IEP Hearing Conservat ion Exam) OUTPATIENT [id number] hearing exam HICKS PRISCILLA J. 04/10 Released w/o Limitations [facility] [place] Hearing Conserv ation Exam) [facility] [place] OUTPATIENT [id number] KATHARINE CLIFFORD 04/11 Released w/o Limitations [facility] [place]Chir opracti [place]) [facility] [place] Hearing Conservat ion Exam[place] OUTPATIENT [id number] Follow- up #1 ARIELLA BURDICK 04/12 Released w/o Limitations [facility] [place] Hearing Conserv ation Exam) [facility] [place] OUTPATIENT [id number] KATHARINE CLIFFORD 04/18 Released w/o Limitations [facility] [place]Ch[place]ract[place]) [facility] [place] OUTPATIENT [id number] KATHARINE CLIFFORD 04/27 Released w/o Limitations [facility] [place]Ch[place] opract[place]) [facility] [place]Pod[place]) OUTPATIENT [id number] NONALLO PATHIC LESIONS THORACI C NIKITA LAIRD 04/30 Released w/o Limitations [facility] [place]Pod[place] [facility] [place]) OUTPATIENT [id number] KATHARINE CLIFFORD 05/02 Released w/o Limitations [facility] [place]) [facility] [place] OUTPATIENT [id number] KATHARINE CLIFFORD 05/17 Released w/o Limitations [facility] [place]) [facility] [place] OUTPATIENT [id number] KATHARINE CLIFFORD 05/30 Released w/o Limitations [facility] [place]) [facility] [place] OUTPATIENT [id number] ELLA URENA 05/31 Released w/o Limitations [facility] [place] [facility] [place] OUTPATIENT [id number] ELLA URENA 06/01 Released w/o Limitations [facility] [place] [facility] [place] OUTPATIENT [id number] RAPHAEL CLAYTON 06/04 Released w/o Limitations [facility] [facility] [place] [place] [facility] [place]) OUTPATIENT [id number] ELLA URENA 06/06 Released w/o Limitations [facility] [place] [facility] [place]) [place] [id number] KATHARINE CLIFFORD 06/07 Released w/o Limitations [facility] [place] [facility] [place]) [place] [id number] RAPHAEL CLAYTON 06/12 Released w/o Limitations [facility] [place] [facility] [place]) [place] [id number] KATHARINE CLIFFORD 06/14 Released w/o Limitations [facility] [place] [facility] [place] [id number] RAPHAEL CLAYTON 06/15 Released w/o Limitations [facility] [place] [facility] [place] [id number] RAPHAEL CLAYTON 06/19 Released w/o Limitations [facility] [place] [facility] [place] [id number] KATHARINE CLIFFORD 06/20 Released w/o Limitations [facility] [place] [facility] [place] [id number] ELLA URENA 06/22 Released w/o Limitations [facility] [place] [facility] [place] [id number] Orthope dic Device ABEBE FONSECA 06/25 Released w/o Limitations [facility] [place] [facility] [place] [id number] ELLA URENA 06/25 Released w/o Limitations [facility] [place] [facility] [place] [id number] KATHARINE CLIFFORD 06/26 Released w/o Limitations [facility] [place] [facility] [place] [id number] RAPHAEL CLAYTON 07/02 Released w/o Limitations [facility] [place] [facility] [place] [id number] KATHARINE CLIFFORD 07/02 Released w/o Limitations [facility] [place] [facility] [place] [id number] eye exam ASHLYN DAVIS 07/03 Released w/o Limitations [facility] [place] [facility] [place] [id number] ELLA URENA 07/04 Released w/o Limitations [facility] [place] [facility] [place] [id number] ELLA URENA 07/09 Released w/o Limitations [facility] [place] [facility] [place] [id number] RAPHAEL CLAYTON 07/11 Released w/o Limitations [facility] [place] [facility] [place] [id number] KATHARINE CLIFFORD 07/11 Released w/o Limitations [facility] [place] [facility] [place] [id number] KATHARINE CLIFFORD 07/19 Released w/o Limitations [facility] [place] [facility] [place]PATIENT [id number] KATHARINE CLIFFORD 08/03 Released w/o Limitations [facility] [place] [facility] [place] [id number] KATHARINE CLIFFORD 08/17 Released w/o Limitations [facility] [place] [facility] [place] [id number] KATHARINE CLIFFORD 08/24 Released w/o Limitations General Ezequiel Wood [facility] [place] General Ezequiel Wood [facility] [place] [id number] KATHARINE CLIFFORD 09/03 Released w/o Limitations General Ezequiel Wood [facility] [place] General Ezequiel Wood [facility] [place] [id number] KATHARINE CLIFFORD 09/14 Released w/o Limitations General Ezequiel Wood [facility] [place] [facility] GROUP PSYCHOTHER APY [id number] Diagnos is: ICD-10- CM F43.12 Post-tr aumatic stress disorde r, chronic MARYURI VERDUGO ALIS 04/09 [facility] [place] [facility] Outpatient Encounter [id number] 04/16 [facility] [place] [facility] GROUP PSYCHOTHER APY [id number] 72 Diagnos is: ICD-10- CM F43.12 Post-tr aumatic stress disorde r, chronic MARYURI VERDUGO ALIS 04/23 [facility] GROUP PSYCHOTHER APY [id number] 1BY.[id number] Diagnos is: ICD-10- CM F43.12 Post-tr aumatic stress disorde r, chronic MARYURI VERDUGO ALIS 04/29 [facility] GROUP PSYCHOTHER APY [id number] 1BY.[id number] Diagnos is: ICD-10- CM F43.12 Post-tr aumatic stress disorde r, chronic MARYURI VERDUGO ALIS 05/06 [facility] [place] [facility] Outpatient Encounter [id number] 05/07 [facility] [place] [place] [facility] GROUP PSYCHOTHER APY [id number] [id number] Diagnos is: ICD-10- CM F43.12 Post-tr aumatic stress disorde r, chronic MARYURI VERDUGO ALIS 05/13 [facility] GROUP PSYCHOTHER APY [id number] [id number] Diagnos is: ICD-10- CM F43.12 Post-tr aumatic stress disorde r, chronic MARYURI VERDUGO ALIS 05/20 [facility] GROUP PSYCHOTHER APY [id number] 1BY.[id number] Diagnos is: ICD-10- CM F43.12 Post-tr aumatic stress disorde r, chronic MARYURI EVRDUGO ALIS 05/27 [facility] GROUP PSYCHOTHER APY [id number] [id number] Diagnos is: ICD-10- CM F43.12 Post-tr aumatic stress disorde r, chronic MARYURI VERDUGO ALIS 06/03 [facility] GROUP PSYCHOTHER APY [id number] [id number] Diagnos is: ICD-10- CM F43.12 Post-tr aumatic stress disorde r, chronic MARYURI VERDUGO ALIS 06/10 [facility] GROUP PSYCHOTHER APY [id number] [id number] Diagnos is: ICD-10- CM F43.12 Post-tr aumatic stress disorde r, chronic MARYURI VERDUGO ALIS 06/17 [facility] [place] [facility] Outpatient Encounter [id number] 06/17 [facility] [place] [facility] GROUP PSYCHOTHER APY [id number] [id number] Diagnos is: ICD-10- CM F43.12 Post-tr aumatic stress disorde r, chronic MARYURI VERDUGO ALIS 06/24 [facility] GROUP PSYCHOTHER APY [id number] [id number] Diagnos is: ICD-10- CM F43.12 Post-tr aumatic stress disorde r, chronic VERDUGO,MARYURI ALIS 07/01 [facility] [place] GROUP PSYCHOTHER APY [id number] [id number] Diagnos is: ICD-10- CM F43.12 Post-tr aumatic stress disorde r, chronic MARYURI VERDUGO ALIS 07/08 [facility] [place] Outpatient Encounter [id number] 07/08 [facility] [place] Encounter [id number] 07/24 [facility] [place] [facility] [facility] [id number] [id number] 72 Diagnos is: ICD-10- CM F43.12 Post-tr aumatic stress disorde r, chronic MARYURI VERDUGO [facility]IS 07[facility]29 [facility] [id number] [id number] Diagnos is: ICD-10- CM F43.12 Post-tr aumatic stress disorde r, chronic MARYURI VERDUGO ALIS 08/05 [facility] [id number] [id number] Diagnos is: ICD-10- CM F43.12 Post-tr aumatic stress disorde r, chronic MARYURI VERDUGO ALIS 08/12 [facility] IELD [place] GROUP PSYCHOTHER APY [id number] [id number] Diagnos is: ICD-10- CM F43.12 Post-tr aumatic stress disorde r, chronic MARYURI VERDUGO ALIS 08/19 [facility] IELD [place] [facility] GROUP PSYCHOTHER APY [id number] [id number] Diagnos is: ICD-10- CM F43.12 Post-tr aumatic stress disorde r, chronic MARYURI VERDUGO ALIS 09/02 [facility] IE [place] GROUP PSYCHOTHER APY [id number] [id number] Diagnos is: ICD-10- CM F43.12 Post-tr aumatic stress disorde r, chronic MARYURI VERDUGO ALIS 09/09 [facility] GROUP PSYCHOTHER APY [id number] 1BY.[id number] Diagnos is: ICD-10- CM F43.12 Post-tr aumatic stress disorde r, chronic MARYURI VERDUGO ALIS 09/23 [facility] GROUP PSYCHOTHER APY [id number] 1BY.[id number] Diagnos is: ICD-10- CM F43.12 Post-tr aumatic stress disorde r, chronic MARYURI VERDUGO ALIS 10/07 [facility] GROUP PSYCHOTHER APY [id number] [id number] Diagnos is: ICD-10- CM F43.12 Post-tr aumatic stress disorde r, chronic MARYURI VERDUGO ALIS 10/14 [facility] GROUP PSYCHOTHER APY [id number] 1BY.[id number] Diagnos is: ICD-10- CM F43.12 Post-tr aumatic stress disorde r, chronic MARYURI VERDUGO ALIS 10/21 [facility] GROUP PSYCHOTHER APY [id number] 1BY.[id number] Diagnos is: ICD-10- CM F43.12 Post-tr aumatic stress disorde r, chronic MARYURI VERDUGO ALIS 11/04 [facility] GROUP PSYCHOTHER APY [id number] 1BY.[id number] Diagnos is: ICD-10- CM F43.12 Post-tr aumatic stress disorde r, chronic MARYURI VERDUGO ALIS 11/11 [facility] GROUP PSYCHOTHER APY [id number] [id number] Diagnos is: ICD-10- CM F43.12 Post-tr aumatic stress disorde r, chronic MARYURI VERDUGO ALIS 11/18 [facility] GROUP PSYCHOTHER APY [id number] [id number] Diagnos is: ICD-10- CM F43.12 Post-tr aumatic stress disorde r, chronic MARYURI VERDUGO ALIS 11/25 [facility] GROUP PSYCHOTHER APY [id number] [id number] Diagnos is: ICD-10- CM F43.12 Post-tr aumatic stress disorde r, chronic MARYURI VERDUGO ALIS 12/02 [facility] GROUP PSYCHOTHER APY [id number] [id number] Diagnos is: ICD-10- CM F43.12 Post-tr aumatic stress disorde r, chronic MARYURI VERDUGO ALIS 12/16 [facility] GROUP PSYCHOTHER APY [id number] [id number] Diagnos is: ICD-10- CM F43.12 Post-tr aumatic stress disorde r, chronic MARYURI VERDUGO ALIS 12/23 [facility] GROUP PSYCHOTHER APY [id number] [id number] 97 Diagnos is: ICD-10- CM F43.12 Post-tr aumatic stress disorde r, chronic MARYURI VERDUGO ALIS 12/30 [facility] GROUP PSYCHOTHER APY [id number] 1BY.[id number] Diagnos is: ICD-10- CM F43.12 Post-tr aumatic stress disorde r, chronic MARYURI VERDUGO ALIS 01/13 [facility] GROUP PSYCHOTHER APY [id number] [id number] Diagnos is: ICD-10- CM F43.12 Post-tr aumatic stress disorde r, chronic MARYURI VERDUGO ALIS 01/20 [facility] [place] [facility] Outpatient Encounter [id number] 01/20 [facility] [place] [place] [facility] GROUP PSYCHOTHER APY [id number] [id number] Diagnos is: ICD-10- CM F43.12 Post-tr aumatic stress disorde r, chronic MARYURI VERDUGO ALIS 01/27 [facility] Outpatient Encounter [id number] 42 01/31 [facility] [place] [place] [facility] Outpatient Encounter [id number] 01/31 [facility] [place] [place] [facility] GROUP PSYCHOTHER APY [id number] [id number] Diagnos is: ICD-10- CM F43.12 Post-tr aumatic stress disorde r, chronic MARYURI VERDUGO ALIS 02/03 [facility] GROUP PSYCHOTHER APY [id number] [id number] Diagnos is: ICD-10- CM F43.12 Post-tr aumatic stress disorde r, chronic MARYURI VERDUGO ALIS 02/17 [facility] [place] [facility] Outpatient Encounter [id number] 03/03 [facility] [place] [place] [facility] GROUP PSYCHOTHER APY [id number] [id number] Diagnos is: ICD-10- CM F43.12 Post-tr aumatic stress disorde r, chronic MARYURI VERDUGO ALIS 03/03 [facility] OFFICE O/P EST LOW 20 MIN [id number] [id number] Diagnos is: ICD-10- CM F43.12 Post-tr aumatic stress disorde r, chronic FRANCINE,LIS A PEE 03/03 [facility] [place] [facility] Outpatient Encounter [id number]/03 [facility] [place] [place] [facility] GROUP PSYCHOTHER APY [id number] [id number] Diagnos is: ICD-10- CM F43.12 Post-tr aumatic stress disorde r, chronic MARYURI VERDUGO ALIS 03/24 [facility] GROUP PSYCHOTHER APY [id number] [id number] Diagnos is: ICD-10- CM F43.12 Post-tr aumatic stress disorde r, chronic MARYURI VERDUGO ALIS 03/31 [facility] LD GROUP PSYCHOTHER APY [id number] [id number] Diagnos is: ICD-10- CM F43.12 Post-tr aumatic stress disorde r, chronic VERDUGOMARYURI ALIS 04/07 [facility] [place] [facility] Outpatient Encounter [id number] 1.04/08 [facility] [place] [facility] [place] GROUP PSYCHOTHER APY [id number] [id number] Diagnos is: ICD-10- CM F43.12 Post-tr aumatic stress disorde r, chronic AMRYURI VERDUGO ALIS 04/21 [facility] LD GROUP PSYCHOTHER APY [id number] [id number] Diagnos is: ICD-10- CM F43.12 Post-tr aumatic stress disorde r, chronic MARYURI VERDUGO ALIS 04/28 [facility] [id number] [id number] Diagnos is: ICD-10- CM F43.12 Post-tr aumatic stress disorde r, chronic MARYURI VERDUGO ALIS 05/05 [facility] [id number] [id number] Diagnos is: ICD-10- CM F43.12 Post-tr aumatic stress disorde r, chronic MARYURI VERDUGO ALIS 05/19 [facility] LD GROUP PSYCHOTHER APY [id number] [id number] Diagnos is: ICD-10- CM F43.12 Post-tr aumatic stress disorde r, chronic MARYURI VERDUGO ALIS 05/26 [facility] PSYCHOTHER APY [id number] [id number] Diagnos is: ICD-10- CM F43.12 Post-tr aumatic stress disorde r, chronic MARYURI VERDUGO ALIS 06/16 [facility] GROUP PSYCHOTHER APY [id number] 1BY.[id number] Diagnos is: ICD-10- CM F43.12 Post-tr aumatic stress disorde r, chronic MARYURI VERDUGO ALIS 06/30 [facility] GROUP PSYCHOTHER APY [id number] [id number].[id number] Diagnos is: ICD-10- CM F43.12 Post-tr aumatic stress disorde r, chronic MARYURI VERDUGO ALIS 07/07 [facility] GROUP PSYCHOTHER APY [id number] 1BY.[id number] Diagnos is: ICD-10- CM F43.12 Post-tr aumatic stress disorde r, chronic MARYURI VERDUGO ALIS 07/28 [facility] GROUP PSYCHOTHER APY [id number] [id number].[id number] Diagnos is: ICD-10- CM F43.12 Post-tr aumatic stress disorde r, chronic MARYURI VERDUGO ALIS08/04 [facility] GROUP PSYCHOTHER APY [id number] 1BY.[id number] 74 Diagnos is: ICD-10- CM F43.12 Post-tr aumatic stress disorde r, chronic MARYURI VERDUGO ALIS 08/11 [facility] GROUP PSYCHOTHER APY [id number] 1BY.[id number] Diagnos is: ICD-10- CM F43.12 Post-tr aumatic stress disorde r, chronic MARYURI VERDUGO ALIS 08/18 [facility] GROUP PSYCHOTHER APY [id number] 1BY.[id number] Diagnos is: ICD-10- CM F43.12 Post-tr aumatic stress disorde r, chronic MARYURI VERDUGO ALIS 08/25 [facility] GROUP PSYCHOTHER APY 53040-2.63 [id number] Diagnos is: ICD-10- CM F43.12 Post-tr aumatic stress disorde r, chronic MARYURI VERDUGO ALIS 09/01 [facility] [id number] [id number] Diagnos is: ICD-10- CM F43.12 Post-tr aumatic stress disorde r, chronic MARYURI VERDUGO 09/08 [facility] IELD [facility] LD GROUP PSYCHOTHER APY [id number] [id number] Diagnos is: ICD-10- CM F43.12 Post-tr aumatic stress disorde r, chronic MARYURI VERDUGO 09/15 [facility] 68110-4.63 [id number] Diagnos is: ICD-10- CM F43.12 Post-tr aumatic stress disorde r, chronic MARYURI VERDUGO 09/22 [facility] IE Procedures Combined list of: 1) Procedures from Department of Veterans Affairs facilities going back up to thelast 18 months, not all VA non-surgical procedures are included; 2) All procedures from the Department of Defense facilities. Procedure Procedure Type Code Date Perfomer Comments Sour e DETERMINATION OF REFRACTIVE STATE 01/05/20 01 DoD SKIN TEST; TUBERCULOSIS, INTRADERMAL 08/15/19 06 DoD DETERMINATION OF REFRACTIVE STATE 08/11/19 06 DoD INDIVIDUAL PSYCHOTHERAPY, INSIGHT ORIENTED, BEHAVIOR MODIFYING AND/OR SUPPORTIVE, IN AN OFFICE OR OUTPATIENT FACILITY, APPROXIMATELY 20 TO 30 MINUTES [id number] W THE PATIENT; W MED EVAL & MGT SER 08/09/19 06 DoD INTERACTIVE GROUP PSYCHOTHERAPY 07/26/19 06 DoD INDIVIDUAL PSYCHOTHERAPY, INSIGHT ORIENTED, BEHAVIOR MODIFYING AND/OR SUPPORTIVE, IN AN OFFICE OR OUTPATIENT FACILITY, APPROXIMATELY 45 TO 50 MINUTES [id number] W THE PATIENT; W MED EVAL & MGT SER 07/19/19 06 DoD VASECTOMY, UNILATERAL OR BILATERAL (SEPARATE PROCEDURE), INCLUDING POSTOPERATIVE SEMEN EXAM(S) 06/22/19 06 DoD COLLECTION OF VENOUS BLOOD BY VENIPUNCTURE 04/24/19 06 [facility] COLLECTION OF VENOUS BLOOD BY VENIPUNCTURE 12/09/19 05 DoD PURE TONE AUDIOMETRY (THRESHOLD); AIR ONLY 12/09/19 05 DoD SKIN TEST; TUBERCULOSIS, INTRADERMAL 11/26/19 05 DoD YELLOW FEVER VACCINE, LIVE, FOR SUBCUTANEOUS USE 10/14/19 05 DoD RADIOLOGIC EXAMINATION, CHEST; SINGLE VIEW, FRONTAL 06/21/19 05 [facility] DETERMINATION OF REFRACTIVE STATE 06/01/19 05 [facility] DETERMINATION OF REFRACTIVE STATE 05/31/19 05 [facility] PURE TONE AUDIOMETRY (THRESHOLD); AIR ONLY 05/12/19 05 [facility] COLLECTION OF VENOUS BLOOD BY VENIPUNCTURE 04/23/19 05 [facility] EDUCATIONAL SUPPLIES, SUCH BOOKS, TAPES, AND PAMPHLETS, FOR THE PATIENT'S EDUCATION AT COST TO PHYSICIAN OR OTHER QUALIFIED HEALTH DIGITAL MEDIA DIRECTOR 11/24/19 04 [facility] ANALYSIS OF CLINICAL DATA STORED IN COMPUTERS (EG, ECGS, BLOOD PRESSURES, HEMATOLOGIC DATA) 08/24/19 04 [facility] OPHTHALMOLOGICAL SERVICES: MEDICAL EXAMINATION AND EVALUATION WITH INITIATION OF DIAGNOSTIC AND TREATMENT PROGRAM; INTERMEDIATE, NEW PATIENT 08/18/19 04 [facility] OPHTHALMOLOGICAL SERVICES: MEDICAL EXAMINATION AND EVALUATION, WITH INITIATION OR CONTINUATION OF DIAGNOSTIC AND TREATMENT PROGRAM; INTERMEDIATE, ESTABLISHED PATIENT 02/24/20 03 [facility] OPHTHALMOLOGICAL SERVICES: MEDICAL EXAMINATION AND EVALUATION WITH INITIATION OF DIAGNOSTIC AND TREATMENT PROGRAM; COMPREHENSIVE, NEW PATIENT, 1 OR MORE VISITS 02/24/20 03 [facility] COLLECTION OF VENOUS BLOOD BY VENIPUNCTURE 07/29/19 03 [facility] PURE TONE AUDIOMETRY (THRESHOLD); AIR ONLY 03/27/19 03 [facility] APPLICATION, CAST; ELBOW TO FINGER 02/12/20 02 [facility] APPLICATION, CAST; SHOULDER TO HAND 01/15/20 02 [facility] APPLICATION OF SHORT ARM SPLINT (FOREARM TO HAND); STATIC 01/15/20 02 [facility] HEPATITIS B VACCINE (HEPB), ADULT DOSAGE, 3 DOSE SCHEDULE, FOR INTRAMUSCULAR USE 08/27/19 02 [facility] INDIVIDUAL PSYCHOTHERAPY, INSIGHT ORIENTED, BEHAVIOR MODIFYING AND/OR SUPPORTIVE, IN AN OFFICE OR OUTPATIENT FACILITY, APPROXIMATELY 20 TO 30 MINUTES [id number] W THE PATIENT; W MED EVAL & MGT SER 09/20/19 07 [facility] CHIROPRACTIC MANIPULATIVE TREATMENT (CMT); SPINAL, 3-4 REGIONS 09/15/19 DoD CHIROPRACTIC MANIPULATIVE TREATMENT (CMT); SPINAL, 3-4 REGIONS 09/04/19 07 DoD CHIROPRACTIC MANIPULATIVE TREATMENT (CMT); SPINAL, 3-4 REGIONS 08/25/19 07 [facility] CHIROPRACTIC MANIPULATIVE TREATMENT (CMT); SPINAL, 3-4 REGIONS 08/18/19 07 [facility] INDIVIDUAL PSYCHOTHERAPY, INSIGHT ORIENTED, BEHAVIOR MODIFYING AND/OR SUPPORTIVE, IN AN OFFICE OR OUTPATIENT FACILITY, APPROXIMATELY 20 TO 30 MINUTES [id number] W THE PATIENT; W MED EVAL & MGT SER 08/14/19 07 DoD CHIROPRACTIC MANIPULATIVE TREATMENT (CMT); SPINAL, 3-4 REGIONS 08/04/19 07 DoD CHIROPRACTIC MANIPULATIVE TREATMENT (CMT); SPINAL, 3-4 REGIONS 07/20/19 07 DoD INDIVIDUAL PSYCHOTHERAPY, INSIGHT ORIENTED, BEHAVIOR MODIFYING AND/OR SUPPORTIVE, IN AN OFFICE OR OUTPATIENT FACILITY, APPROXIMATELY 20 TO 30 MINUTES [id number] W THE PATIENT; W MED EVAL & MGT SER 07/17/19 07 DoD CHIROPRACTIC MANIPULATIVE TREATMENT (CMT); SPINAL, 3-4 REGIONS 07/12/19 07 DoD APPLICATION OF A MODALITY TO 1 OR MORE AREAS; TRACTION, MECHANICAL 07/12/19 DoD APPLICATION OF A MODALITY TO 1 OR MORE AREAS; HOT OR COLD PACKS 07/10/19 07 DoD APPLICATION OF A MODALITY TO 1 OR MORE AREAS; HOT OR COLD PACKS 07/05/19 07 DoD FITTING OF SPECTACLES, EXCEPT FOR APHAKIA; MONOFOCAL 07/04/19 07 DoD CHIROPRACTIC MANIPULATIVE TREATMENT (CMT); SPINAL, 3-4 REGIONS 07/03/19 07 DoD APPLICATION OF A MODALITY TO 1 OR MORE AREAS; TRACTION, MECHANICAL 07/03/19 07 DoD CHIROPRACTIC MANIPULATIVE TREATMENT (CMT); SPINAL, 3-4 REGIONS 06/27/19 DoD APPLICATION OF A MODALITY TO 1 OR MORE AREAS; HOT OR COLD PACKS 06/26/19 07 DoD FOOT INSERT, REMOVABLE, MOLDED TO PATIENT MODEL, SPENCO, EACH 06/26/19 07 DoD ORTHOTIC(S) MANAGEMENT AND TRAINING (INCLUDING ASSESSMENT AND FITTING WHEN NOT OTHERWISE REPORTED),UPPER EXTREMITY(IES),LOWER EXTREMITY(IES) AND/OR TRUNK,INITIAL ORTHOTIC(S) ENCOUNTER,EACH 15 MINUTES 06/23/19 07 DoD CHIROPRACTIC MANIPULATIVE TREATMENT (CMT); SPINAL, 3-4 REGIONS 06/21/19 07 DoD APPLICATION OF A MODALITY TO 1 OR MORE AREAS; TRACTION, MECHANICAL 06/20/19 07 DoD INDIVIDUAL PSYCHOTHERAPY, INSIGHT ORIENTED, BEHAVIOR MODIFYING AND/OR SUPPORTIVE, IN AN OFFICE OR OUTPATIENT FACILITY, APPROXIMATELY 20 TO 30 MINUTES [id number] W THE PATIENT; W MED EVAL & MGT SER 06/16/19 07 DoD APPLICATION OF A MODALITY TO 1 OR MORE AREAS; TRACTION, MECHANICAL 06/16/19 07 DoD CHIROPRACTIC MANIPULATIVE TREATMENT (CMT); SPINAL, 3-4 REGIONS 06/15/19 07 DoD APPLICATION OF A MODALITY TO 1 OR MORE AREAS; TRACTION, MECHANICAL 06/13/19 07 DoD CHIROPRACTIC MANIPULATIVE TREATMENT (CMT); SPINAL, 3-4 REGIONS 06/08/19 07 DoD APPLICATION OF A MODALITY TO 1 OR MORE AREAS; HOT OR COLD PACKS 06/07/19 07 DoD APPLICATION OF A MODALITY TO 1 OR MORE AREAS; TRACTION, MECHANICAL 06/05/19 07 DoD APPLICATION OF A MODALITY TO 1 OR MORE AREAS; TRACTION, MECHANICAL 06/02/19 07 DoD CHIROPRACTIC MANIPULATIVE TREATMENT (CMT); SPINAL, 3-4 REGIONS 05/31/19 07 DoD APPLICATION OF A MODALITY TO 1 OR MORE AREAS; HOT OR COLD PACKS 05/31/19 07 DoD INDIVIDUAL PSYCHOTHERAPY, INSIGHT ORIENTED, BEHAVIOR MODIFYING AND/OR SUPPORTIVE, IN AN OFFICE OR OUTPATIENT FACILITY, APPROXIMATELY 20 TO 30 MINUTES [id number] W THE PATIENT; W MED EVAL & MGT SER 05/19/19 07 DoD CHIROPRACTIC MANIPULATIVE TREATMENT (CMT); SPINAL, 3-4 REGIONS 05/18/19 07 DoD CHIROPRACTIC MANIPULATIVE TREATMENT (CMT); SPINAL, 3-4 REGIONS 05/03/19 07 DoD FOOT INSERT, REMOVABLE, MOLDED TO PATIENT MODEL, LONGITUDINAL ARCH SUPPORT, EACH 05/01/19 07 DoD CHIROPRACTIC MANIPULATIVE TREATMENT (CMT); SPINAL, 3-4 REGIONS 04/28/19 07 DoD INDIVIDUAL PSYCHOTHERAPY, INSIGHT ORIENTED, BEHAVIOR MODIFYING AND/OR SUPPORTIVE, IN AN OFFICE OR OUTPATIENT FACILITY, APPROXIMATELY 20 TO 30 MINUTES [id number] W THE PATIENT; W MED EVAL & MGT SER 04/20/19 07 DoD CHIROPRACTIC MANIPULATIVE TREATMENT (CMT); SPINAL, 3-4 REGIONS 04/18/19 07 DoD AUDIOMETRIC TESTING OF GROUPS 04/12/19 07 DoD CHIROPRACTIC MANIPULATIVE TREATMENT (CMT); SPINAL, 3-4 REGIONS 04/11/19 07 DoD AUDIOMETRIC TESTING OF GROUPS 04/10/19 07 DoD SCREENING TEST OF VISUAL ACUITY, QUANTITATIVE, BILATERAL 04/09/19 07 DoD CHIROPRACTIC MANIPULATIVE TREATMENT (CMT); SPINAL, 3-4 REGIONS 04/05/19 07 DoD CHIROPRACTIC MANIPULATIVE TREATMENT (CMT); SPINAL, 3-4 REGIONS 04/03/19 07 [facility] COLLECTION OF VENOUS BLOOD BY VENIPUNCTURE 04/02/19 07 DoD CHIROPRACTIC MANIPULATIVE TREATMENT (CMT); SPINAL, 3-4 REGIONS 03/27/19 07 DoD CHIROPRACTIC MANIPULATIVE TREATMENT (CMT); SPINAL, 3-4 REGIONS 03/23/19 07 DoD CHIROPRACTIC MANIPULATIVE TREATMENT (CMT); SPINAL, 3-4 REGIONS 03/20/19 07 DoD CHIROPRACTIC MANIPULATIVE TREATMENT (CMT); SPINAL, 3-4 REGIONS 03/15/19 07 DoD INDIVIDUAL PSYCHOTHERAPY, INSIGHT ORIENTED, BEHAVIOR MODIFYING AND/OR SUPPORTIVE, IN AN OFFICE OR OUTPATIENT FACILITY, APPROXIMATELY 20 TO 30 MINUTES [id number] W THE PATIENT; W MED EVAL & MGT SER 03/08/19 07 DoD CHIROPRACTIC MANIPULATIVE TREATMENT (CMT); SPINAL, 3-4 REGIONS 03/08/19 07 [facility] CHIROPRACTIC MANIPULATIVE TREATMENT (CMT); SPINAL, 3-4 REGIONS 03/01/19 07 [facility] CHIROPRACTIC MANIPULATIVE TREATMENT (CMT); SPINAL, 3-4 REGIONS 02/16/20 06 DoD INDIVIDUAL PSYCHOTHERAPY, INSIGHT ORIENTED, BEHAVIOR MODIFYING AND/OR SUPPORTIVE, IN AN OFFICE OR OUTPATIENT FACILITY, APPROXIMATELY 20 TO 30 MINUTES [id number] W THE PATIENT; W MED EVAL & MGT SER 02/15/20 06 [facility] CHIROPRACTIC MANIPULATIVE TREATMENT (CMT); SPINAL, 3-4 REGIONS 02/13/20 06 [facility] EDUCATIONAL SUPPLIES, SUCH BOOKS, TAPES, AND PAMPHLETS, FOR THE PATIENT'S EDUCATION AT COST TO PHYSICIAN OR OTHER QUALIFIED HEALTH DIGITAL MEDIA DIRECTOR 02/09/20 06 DoD INDIVIDUAL PSYCHOTHERAPY, INSIGHT ORIENTED, BEHAVIOR MODIFYING AND/OR SUPPORTIVE, IN AN OFFICE OR OUTPATIENT FACILITY, APPROXIMATELY 20 TO 30 MINUTES [id number] W THE PATIENT; W MED EVAL & MGT SER 02/01/20 06 DoD INDIVIDUAL PSYCHOTHERAPY, INSIGHT ORIENTED, BEHAVIOR MODIFYING AND/OR SUPPORTIVE, IN AN OFFICE OR OUTPATIENT FACILITY, APPROXIMATELY 20 TO 30 MINUTES [id number] W THE PATIENT; W MED EVAL & MGT SER 01/09/20 06 DoD LUMB ORTHO,SAG CTRL,RIG PST MEDINA,PST EXT FRM L-1 TO BELOW L-5 VERT,PROD INTRACAV PRES TO RED LOAD ON INTERVER DSC,STRP,CLOS,PAD,STA Y,SHLD STRP,PEN AB,PREFAB,TRIM,BNT,ML D,ASSEM/CUST FIT PAT,INDIV W EXP 01/03/20 06 [facility] IMMUNIZATION ADMINISTRATION BY INTRANASAL OR ORAL ROUTE; 1 VACCINE (SINGLE OR COMBINATION VACCINE/TOXOID) 12/12/19 [facility] INFLUENZA VIRUS VACCINE, TRIVALENT, LIVE (LAIV3), FOR INTRANASAL USE 12/06/19 [facility] INDIVIDUAL PSYCHOTHERAPY, INSIGHT ORIENTED, BEHAVIOR MODIFYING AND/OR SUPPORTIVE, IN AN OFFICE OR OUTPATIENT FACILITY, APPROXIMATELY 20 TO 30 MINUTES [id number] W THE PATIENT; [facility] EVAL & MGT SER 11/25/19 06 [facility] INDIVIDUAL PSYCHOTHERAPY, INSIGHT ORIENTED, BEHAVIOR MODIFYING AND/OR SUPPORTIVE, IN AN OFFICE OR OUTPATIENT FACILITY, APPROXIMATELY 20 TO 30 MINUTES [id number] W THE PATIENT; [facility] EVAL & MGT SER 11/14/19 06 [facility] INDIVIDUAL PSYCHOTHERAPY, INSIGHT ORIENTED, BEHAVIOR MODIFYING AND/OR SUPPORTIVE, IN AN OFFICE OR OUTPATIENT FACILITY, APPROXIMATELY 45 TO 50 MINUTES [id number] W THE PATIENT; [facility] EVAL & MGT SER 11/07/19 06 [facility] INDIVIDUAL PSYCHOTHERAPY, INSIGHT ORIENTED, BEHAVIOR MODIFYING AND/OR SUPPORTIVE, IN AN OFFICE OR OUTPATIENT FACILITY, APPROXIMATELY 45 TO 50 MINUTES [id number] W THE PATIENT; [facility] EVAL & MGT SER 10/27/19 06 [facility] PREPARATION OF REPORT OF PATIENT'S PSYCHIATRIC STATUS, HISTORY, TREATMENT, OR PROGRESS (OTHER THAN FOR LEGAL OR CONSULTATIVE PURPOSES) FOR OTHER INDIVIDUALS, AGENCIES, OR INSURANCE CARRIERS 10/27/19 [facility] MENINGOCOCCAL POLYSACCHARIDE VACCINE, SEROGROUPS A, C, Y, W-135, QUADRIVALENT (MPSV4), FOR SUBCUTANEOUS USE 10/24/19 06 [facility] INDIVIDUAL PSYCHOTHERAPY, INSIGHT ORIENTED, BEHAVIOR MODIFYING AND/OR SUPPORTIVE, IN AN OFFICE OR OUTPATIENT FACILITY, APPROXIMATELY 20 TO 30 MINUTES [id number] W THE PATIENT; W MED EVAL & MGT SER 10/17/19 06 [facility] Health And Behav A e mt Each 15 Min Initial A e ment Health And Behav Assessmt Each 15 Min Initial Assessment 62177 11/29/19 05 ORVILLE ELIZONDO [facility] Immunization Administration One Vaccine Immunization Administration One Vaccine 99952 10/14/19 05 ELDER SHEN [facility] Typhoid Vaccine Vi Capsular Polysaccharide, For Intramus Use Typhoid Vaccine Vi Capsular Polysaccharide, For Intramus Use 75899 10/14/19 05 ELDER SHEN [facility] Immunization Administration Each Additional Vaccine 10/14/19 05 ELDER SHEN [facility] Vaccines Viral Yellow Fever Vaccines Viral Yellow Fever 74337 10/14/19 05 ELDER SHEN [facility] Psychiat Therapy Indiv Appr 20-30 Min W/ Med Eval Managemt Psychiat Therapy Indiv Appr 20-30 Min W/ Med Eval Managemt [id number] 09/20/19 07 RAMESH LUTHER Chiropractic Manip Treatmt (CMT) [facility] [place] [facility] Chiropractic Manip Treatmt (CMT) [facility] [place] 84259 09/15/19 07 DEBRA ORTEGA Chiropractic Manip Treatmt (CMT) Sp[facility] [place] Chiropractic Manip Treatmt (CMT) [facility] [place] 78682 09/04/19 07 DEBRA ORTEGA Chiropractic Manip Treatmt (CMT) [facility] [place] [facility] Chiropractic Manip Treatmt (CMT) [facility] [place] [facility] 25784 08/25/19 07 DEBRA ORTEGA Chiropractic Manip Treatmt (CMT) [facility] [place] [facility] Chiropractic Manip Treatmt (CMT) [facility] [place] [facility] 01579 08/18/19 07 DEBRA ORTEGA Psychiat Therapy Indiv Appr 20-30 Min W/ Med Eval Managemt Psychiat Therapy Indiv Appr 20-30 Min W/ Med Eval Managemt [id number] 08/14/19 07 RAMESH LUTHER Chiropractic Manip Treatmt (CMT) [facility] Chiropractic Manip Treatmt (CMT) [facility] [place] [facility] 08193 08/04/19 07 DEBRA ORTEGA Chiropractic Manip Treatmt (CMT) [facility] [place] [facility] Chiropractic Manip Treatmt (CMT) [facility] [place] [facility] 10525 07/20/19 07 DEBRA ORTEGA Psychiat Therapy Indiv Appr 20-30 Min W/ Med Eval Managemt Psychiat Therapy Indiv Appr 20-30 Min W/ Med Eval Managemt 04007 07/14/19 07 RAMESH LUTHER Traction Pelvic Traction Pelvic 57654 07/12/19 07 RAPHAEL CLAYTON Chiropractic Manip Treatmt (CMT) [facility] Chiropractic Manip Treatmt (CMT) [facility] [place] [facility] 02505 07/12/19 07 DEBRA ORTEGA Modalities Heat Hot Packs Modalities Heat Hot Packs 59025 07/10/19 07 ELLA URENA Traction Pelvic Traction Pelvic 45499 07/10/19 07 ELLA URENA Modalities Heat Hot Packs Modalities Heat Hot Packs 37620 07/05/19 07 ELLA URENA Traction Pelvic Traction Pelvic 74054 07/05/19 07 ELLA URENA Spectacles Services Fitting Monofocals (Not For Aphakia) [employer] Fitting Monofocals (Not For Aphakia) 83209 07/04/19 07 ASHLYN DAVIS Ophthalmological New Patient Start Comprehensive Care Ophthalmological New Patient Start Comprehensive Care 62088 07/04/19 07 ASHLYN DAVIS Traction Pelvic Traction Pelvic 83064 07/03/19 07 RAPHAEL CLAYTON Chiropractic Manip Treatmt (CMT) Sp[facility] Chiropractic Manip Treatmt (CMT) [facility] [place] [facility] 24014 07/03/19 07 DEBRA ORTEGA Chiropractic Manip Treatmt (CMT) [facility] [place] [facility] Chiropractic Manip Treatmt (CMT) [facility] 21781 06/27/19 07 DEBRA ORTEGA Modalities Heat Hot Packs Modalities Heat Hot Packs 46753 06/26/19 07 ELLA URENA Traction Pelvic Traction Pelvic 53635 06/26/19 07 ELLA URENA Foot insert, removable, molded to patient model, Spemaryanneo, each 06/26/[address] Supervised Ordering / Handling / Fitting Patient Devices Supervised Ordering / Handling / Fitting Patient Devices 49284 06/26/19 07 ABEBE FONSECA Physical Therapy Education Orthotics Training Initial 15 Min 06/26/19 07 ABEBE FONSECA Physical Therapy Education Orthotics Training Initial 15 Min 06/23/[address] Supervised Ordering / Handling / Fitting Patient Devices Supervised Ordering / Handling / Fitting Patient Devices 48824 06/23/[address]Supervised Services Provision Of Educational Supplies -Supervised Services Provision Of Educational Supplies 96016 06/23/19 07 ELLA URENA Modalities Heat Hot Packs Modalities Heat Hot Packs 76112 06/23/19 07 ELLA URENA Traction Pelvic Traction Pelvic 69813 06/23/19 07 ELLA URENA Chiropractic Manip Treatmt (CMT) [facility] Chiropractic Manip Treatmt (CMT) [facility] 56271 06/21/19 07 DEBRA ORTEGA Traction Pelvic Traction Pelvic 65224 06/20/19 07 RAPHAEL CLAYTON [facility] Traction Pelvic Traction Pelvic 30575 06/16/19 07 RAPHAEL CLAYTON [facility] Chiropractic Manip Treatmt (CMT) Sp[facility] Chiropractic Manip Treatmt (CMT) [facility] 90463 06/15/19 07 DEBRA ORTEGA Traction Pelvic Traction Pelvic 11468 06/13/19 07 RAPHAEL CLAYTON [facility] Modalities Heat Hot Packs Modalities Heat Hot Packs 51529 06/08/19 07 ELLA URENA Traction Pelvic Traction Pelvic 66462 06/08/19 07 ELLA URENA Chiropractic Manip Treatmt (CMT) [facility] Chiropractic Manip Treatmt (CMT) [facility] 65587 06/08/19 07 DEBRA ORTEGA Traction Pelvic Traction Pelvic 03526 06/05/19 07 RAPHAEL CLAYTON [facility] Traction Cervical Traction Cervical 51302 06/01 07 ELLA URENA Modalities Heat Hot Packs Modalities Heat Hot Packs 88691 06/02/19 07 ELLA UREAN Modalities Heat Hot Packs Modalities Heat Hot Packs 91963 06/01/19 07 ELLA URENA Traction Pelvic Traction Pelvic 86229 06/01/19 07 ELLA URENA Chiropractic Manip Treatmt (CMT) [facility] Chiropractic Manip Treatmt (CMT) [facility] [place] [facility] 25827 05/31/19 07 DEBRA ORTEGA Psychiat Therapy Indiv Appr 20-30 Min W/ Med Eval Managemt Psychiat Therapy Indiv Appr 20-30 Min W/ Med Eval Managemt [id number] 05/19/19 07 RAMESH LUTHER Chiropractic Manip Treatmt (CMT) [facility] Chiropractic Manip Treatmt (CMT) [facility] 30547 05/18/19 07 DEBRA ORTEGA Chiropractic Manip Treatmt (CMT) [facility] Chiropractic Manip Treatmt (CMT) [facility] 02041 05/03/19 07 KATHARINE CLIFFORD Prison Classification Counselor Educ Orthotics Training Additional 15 Minutes 05/01/19 07 NIKITA LAIRD Chiropractic Manip Treatmt (CMT) [facility] Chiropractic Manip Treatmt (CMT) [facility] 00996 04/28/19 07 KATHARINE CLIFFORD Psychiat Therapy Indiv Appr 20-30 Min W/ Med Eval Managemt Psychiat Therapy Indiv Appr 20-30 Min W/ Med Eval Managemt [id number] 04/20/19 07 RAMESH LUTHER Chiropractic Manip Treatmt (CMT) [facility] Chiropractic Manip Treatmt (CMT) [facility] 74012 04/18/19 07 KATHARINE CLIFFORD Audiometry Group Testing Audiometry Group Testing 57247 04/12/19 07 ARIELLA BURDICK Threshold Audiogram (Pure Tone) Threshold Audiogram (Pure Tone) 23590 04/12/19 07 ARIELLA BURDICK Chiropractic Manip Treatmt (CMT) [facility] Chiropractic Manip Treatmt (CMT) [facility] 21038 04/11/19 07 KATHARINE CLIFFORD Audiometry Group Testing Audiometry Group Testing 95838 04/10/19 07 PRISCILLA HICKS Screening Test Of Visual Acuity, Quantitative, Bilateral Screening Test Of Visual Acuity, Quantitative, Bilateral 47881 04/09/19 07 THINNER, LANI M Emelyn Chiropractic Manip Treatmt (CMT) [facility] Chiropractic Manip Treatmt (CMT) [facility] 24990 04/05/19 07 DEBRA ORTEGA Chiropractic Manip Treatmt (CMT) [facility] Chiropractic Manip Treatmt (CMT) [facility] 70440 04/03/19 07 DEBRA ORTEGA Chiropractic Manip Treatmt (CMT) [facility] Chiropractic Manip Treatmt (CMT) [facility] 22982 03/27/19 07 DEBRA ORTEGA Chiropractic Manip Treatmt (CMT) [facility] Chiropractic Manip Treatmt (CMT) [facility] 40180 03/23/19 07 DEBRA ORTEGA Chiropractic Manip Treatmt (CMT) [facility] Chiropractic Manip Treatmt (CMT) Sp[facility] 55555 03/20/19 07 DEBRA ORTEGA Chiropractic Manip Treatmt (CMT) [facility] Chiropractic Manip Treatmt (CMT) [facility] 04018 03/15/19 07 KATHARINE CLIFFORD Psychiat Therapy Indiv Appr 20-30 Min W/ Med Eval Managemt Psychiat Therapy Indiv Appr 20-30 Min W/ Med Eval Managemt [id number] 03/08/19 07 RAMESH LUTHER Chiropractic Manip Treatmt (CMT) [facility] Chiropractic Manip Treatmt (CMT) [facility] 36979 03/08/19 07 DEBRA ORTEGA Chiropractic Manip Treatmt (CMT) [facility] Chiropractic Manip Treatmt (CMT) [facility] 07313 03/01/19 07 KATHARINE CLIFFORD Chiropractic Manip Treatmt (CMT) [facility] Chiropractic Manip Treatmt (CMT) [facility] 56561 02/16/20 06 DEBRA ORTEGA Psychiat Therapy Indiv Appr 20-30 Min W/ Med Eval Managemt Psychiat Therapy Indiv Appr 20-30 Min W/ Med Eval Managemt [id number] 02/15/20 06 RAMESH LUTHER Chiropractic Manip Treatmt (CMT) [facility] Chiropractic Manip Treatmt (CMT) [facility] 30068 02/13/[address]Supervised Services Provision Of Educational Supplies -Supervised Services Provision Of Educational Supplies [id number] 02/09/[address]Supervised Group Educational Services 02/09/20 06 DEBRA ORTEGA Psychiat Therapy Indiv Appr 20-30 Min W/ Med Eval Managemt Psychiat Therapy Indiv Appr 20-30 Min W/ Med Eval Managemt [id number] 02/01/20 06 RAMESH LUTHER Psychiat Therapy Indiv Appr 20-30 Min W/ Med Eval Managemt Psychiat Therapy Indiv Appr 20-30 Min W/ Med Eval Managemt [id number] 01/09/20 06 RAMESH LUTHER Lumbar orthosis, sagittal control, with rigid posterior panel(s), posterior extends from L-1 to below L-5 vertebra, produces intracavitary pre ure to reduce load on the intervertebral discs, includes straps, closures, may include padding, stays, shoulder straps, pendulous abdomen design, prefabricated, includes fitting and adjustment 01/03/[address] Supervised Ordering / Handling / Fitting Patient Devices Supervised Ordering / Handling / Fitting Patient Devices [id number] 01/03/20 06 MINE DOWNEY Physical Therapy Education Orthotics Training Initial 15 Min 01/03/20 06 MINE DOWNEY Influenza Virus Vaccine Live Intranasal 12/13/19 06 RADHA COLBY Psychiat Therapy Indiv Appr 20-30 Min W/ Med Eval Managemt Psychiat Therapy Indiv Appr 20-30 Min W/ Med Eval Managemt [id number] 12/01/19 06 RAMESH LUTHER Psychiat Therapy Indiv Appr 20-30 Min W/ Med Eval Managemt Psychiat Therapy Indiv Appr 20-30 Min W/ Med Eval Managemt [id number] 11/14/19 06 RAMESH LUTHER [facility] Psychiat Therapy Indiv Appr 45-50 Min W/ Med Eval Managemt Psychiat Therapy Indiv Appr 45-50 Min W/ Med Eval Managemt 72623 11/08/19 06 RAMESH LUTHER [facility] Psychiat Therapy Indiv Appr 45-50 Min W/ Med Eval Managemt Psychiat Therapy Indiv Appr 45-50 Min W/ Med Eval Managemt [id number] 10/27/19 06 RAMESH LUTHER [facility] Psychiatric Therapy Preparation of Psychiatric Status Report Psychiatric Therapy Preparation of Psychiatric Status Report [id number] 10/27/19 06 YANETH PANG [facility] Social Work Individual Outpatient Counseling 45-50 Minutes Social Work Individual Outpatient Counseling 45-50 Minutes 94539 10/27/19 06 YANETH PANG [facility] Psychiatric Evaluation Review of Records and Reports Psychiatric Evaluation Review of Records and Reports 27820 10/27/19 06 YANETH PANG [facility] Meningococcal Polysaccharide Vaccine (Active) Meningococcal Polysaccharide Vaccine (Active) 62461 10/24/19 06 KAROLYN LAINEZ [facility] Immunization Administration One Vaccine Immunization Administration One Vaccine 36661 10/24/19 06 KAROLYN LAINEZ [facility] Psychiat Therapy Indiv Appr 20-30 Min W/ Med Eval Managemt Psychiat Therapy Indiv Appr 20-30 Min W/ Med Eval Managemt [id number] 10/19/19 06 RAMESH LUTHER [facility] Skin Test Anergy Tuberculin Intradermal Skin Test Anergy Tuberculin Intradermal 08311 08/16/19 06 LUIS ENRIQUE MCDERMOTT [facility] Ophthalmological New Patient Start Comprehensive Care Ophthalmological New Patient Start Comprehensive Care 60824 08/11/19 06 EDILBERTO DELACRUZ [facility] Determination Of Refractive State Determination Of Refractive State 20494 08/11/19 06 EDILBERTO DELACRUZ [facility] Psychiat Therapy Indiv Appr 20-30 Min W/ Med Eval Managemt Psychiat Therapy Indiv Appr 20-30 Min W/ Med Eval Managemt 43655 08/09/19 06 CANDACE HERRERA [facility] Psychiatric Therapy Group (Interactive) Psychiatric Therapy Group (Interactive) 86570 07/26/19 06 ADINA LIRA [facility] Psychiat Therapy Indiv Appr 45-50 Min W/ Med Eval Managemt Psychiat Therapy Indiv Appr 45-50 Min W/ Med Eval Managemt [id number] 07/19/19 06 CANDACE HERRERA [facility] Surgery Of Male Genitalia Vasectomy Surgery Of Male Genitalia Vasectomy 02282 06/22/19 06 HUGH DUNN [facility] Venipuncture Venipuncture 52559 04/24/19 [facility] Test Anergy tuberculin Skin Test Anergy tuberculin 76025 04/24/19 06 [facility] Venipuncture Venipuncture 66855 12/14/19 05 [facility] Immunization Administration One Vaccine Immunization Administration One Vaccine 19895 12/14/19 05 [facility] Influenza Split Virus Vaccine Age 3+ Years Intramuscular 12/14/19 05 [facility] Threshold Audiogram (Pure Tone) Threshold Audiogram (Pure Tone) 37262 12/09/19 05 BERTO YODER [facility] Skin Test Anergy Tuberculin Intradermal Skin Test Anergy Tuberculin Intradermal 22976 11/29/19 05 [facility] Social History Combined list of available smoking, tobacco, and other social history from Department of Defense and Veterans Affairs facilities. Social History Type Response Date Comment Sour e Tobacco smoking status [facility]-TOBACCO NEVER USED CIGARETTES 03/03/2024 [place] History of tobacco use PR-TOBACCO NEVER USED OTHER TYPE 03/03/2024 [place] [facility] of [facility] use [facility]/27/2021 [facility] History of tobacco use [facility] 02/03/2020 [facility] History of tobacco use QUIT TOBACCO USE > 7 YEARS AGO 05/22/2017 [place] History of tobacco use QUIT TOBACCO USE > 7 YEARS AGO 02/15/2016 quit 2009 [place] History of tobacco use QUIT TOBACCO USE 1-7 YEARS AGO 01/19/2015 [place] History of tobacco use QUIT TOBACCO USE 1-7 YEARS AGO 05/31/2012 stoppeed [place] History of tobacco use QUIT TOBACCO USE 1-7 YEARS AGO 08/13/2009 [place] This section is an empty social history section. [facility]
--- OUTSIDE RECORDS SUMMARY | 2024-10-02 07:13 | XMS_ITS | Clinical Summary ---
Author Organization [facility] Address [address] [place] [address] Care Team Providers Care Jd Edwards Name Role Phone Lupe Colon DO Primary Care Provider [phone] Surgical History Surgery Date Site/Laterality Comments WISDOM [...] age to complete this topic Care Teams Jd Edwards Relationship Specialty Start Date End Date Lupe Colon DO PCP - General Internal Medicine 04/08/21
[2024-10-02 08:23] LABS: Appearance Urine Clear; Glucose Urine UA Negative (Negative); PH 5.5 (5.0-9.0); Specific Gravity - Urine 1.020 (1.005-1.025)
[2024-10-02 08:28] LABS: Alanine Aminotransferase 46 U/L (0-40); Albumin Level 4.4 g/dL (3.5-5.0); Alkaline Phosphatase 85 U/L (39-117); Anion Gap 11 (12-20); Aspartate Amino Transferase 40 U/L (5-37); Blood Urea Nitrogen 14 mg/dL (9-16); Calcium 8.9 mg/dL (8.4-10.2); Carbon Dioxide 25 mmol/L (22-29); Chloride 108 mmol/L (96-108); Cholesterol 236 mg/dL (<200); Estimated Glomerular Filt Rate 54; HDL Cholesterol 51 mg/dL (>40); Potassium 4.3 mmol/L (3.3-5.1); Sodium 140 mmol/L (135-145); Total Protein 7.6 g/dL (6.5-8.0); Triglycerides 177 mg/dL (<150)
[2024-10-02 08:46] LABS: Microalbum/Creatinine Ratio Ur 7.2 ug/mg cr (<30)
[2024-10-02 12:28] LABS: Free T4 (Free Thyroxine) 0.78 ng/dL (0.71-1.85)
== END 2024-10-02 07:12 | disposition home or self-care (01) ==
LOC: HO.LAB 07:11
PROVIDERS: PCP Family Medicine; Visit Provider Family Medicine
DX: Z12.5 Encounter for screening for malignant neoplasm of prostate (principal); Z00.00 Encounter for general adult medical examination without abnormal findings; I10 Essential (primary) hypertension; E78.5 Hyperlipidemia, unspecified
CPT/HCPCS: 36415; 80053; 80061; 81003; 82043; 82570; 83721; 84153; 84439; 84443